=== PATIENT | female | born 1955 | race Caucasian/White ===

== ENCOUNTER 2020-07-20 10:06 | Emergency (ER) | payer MEDICARE, SELFPAY ==
[2020-07-20 10:17] VITALS: BP 121/79; BP 132/80; PULSE 62; PULSE 65; RESP 11; TEMP 37.2; O2SAT 100; BMI 20.8
--- NOTE | 2020-07-20 10:31 | XR_ITS ---
EXAMINATION: XR CHEST CLINICAL INFORMATION: Chest pain. Shortness of breath. Wheezing. COMPARISON: 11/13/2017 TECHNIQUE: Frontal view of the chest was obtained. FINDINGS: EKG leads overlie the chest. Lungs are hyperexpanded. No consolidation, pneumothorax, or pleural effusion. Cardiac and mediastinal contours are normal. Osseous structures are unremarkable. XR/XR chest 1V IMPRESSION: Mild pulmonary hyperexpansion. Otherwise, no acute cardiopulmonary findings.
--- NOTE | 2020-07-20 10:31 | ECG_ITS ---
Test Reason : CHEST PAIN Blood Pressure : / mmHG Vent. Rate : 061 BPM Atrial Rate : 061 BPM P-R Int : 140 ms QRS Dur : 072 ms QT Int : 412 ms P-R-T Axes : 034 027 056 degrees QTc Int : 414 ms Normal sinus rhythm RSR' or QR pattern in V1 suggests right ventricular conduction delay Low voltage QRS Otherwise normal ECG When compared with ECG of 07-JAN-2019 15:14, No significant change was found Referred By: Seble Rosado Electronically Signed By:MARU CARABALLO MD
--- NOTE | 2020-07-20 10:41 | ED_ITS ---
HPI - Chest Pain General Chief Complaint: Chest Pain Stated Complaint: cp Time Seen by Provider: 07/20/20 10:31 Source: patient and EMS Mode of arrival: EMS Limitations: no limitations History of Present Illness HPI narrative: 64 y/o female with history of depression, HLD, cervical radiculopathy, hx suicide attempt in the past presenting with 4 days of central chest pain. She reports she called her doctor yesterday and was encouraged to come to the ER. She states for the last 4 days she has also had increased co ngestion, cough productive of small amounts of green phlegm, wheezing and chills. She states the chest pain worsened this morning, prompting her to call 911. She describes the pain as crushing and it is non-radiating. Worse with deep breaths. No diaphoresis, nausea, jaw pain, neck pain. No personal cardiac history. Grandmother with [place] in her 70's and blood clots, mother with blood clots. MD complaint: chest pain Onset (ago): day(s) (4) Timing of current episode: constant Prior episodes: No Onset: during rest Pain location: substernal Pain radiation: none Severity: moderate Quality: heaviness and crushing Relieving factors: nothing Exacerbating factors: inspiration Context: recent illness Associated symptoms: dyspnea and cough Treatment prior to arrival: aspirin Risk Factors Coronary artery disease risk factors: smoking history and hyperlipidemia Thoracic aortic dissection risk factors: none Related Data On Oral Contraceptives: No Home Medications Medication Instructions Recorded Confirmed Seroquel 07/20/20 Suboxone 07/20/20 07/20/20 Zetia 07/20/20 atorvastatin 07/20/20 sertraline 07/20/20 Previous Rx's Medication Instructions Recorded albuterol sulfate 1 inh INHALATION QID PRN #8.5 g NS 07/20/20 azithromycin [Zithromax Z-Shashank] See Rx Instructions .ROUTE 07/20/20 .COMPLEX #6 tab prednisone 20 mg PO DAILY #10 tab 07/20/20 Allergies Allergy/AdvReac Type Severity Reaction Status Date / Time codeine [Codeine] Allergy Unknown RASH/ITCHY Unverified 05/13/20 14:36 morphine [MORPHINE] Allergy Unknown RASH Unverified 05/13/20 14:36 procaine [From Novocain] AdvReac Mild HEART Unverified 05/13/20 14:36 RACING Review of Systems Review of Systems: Constitutional: No Fever, + Chills ENT/Mouth: No sore throat, + Rhinorrhea, No Swallowing Difficulty Eyes: No Eye Pain, No Swelling, No Redness Cardiovascular: + Chest Pain, + SOB, No Orthopnea, No Edema Respiratory: + Cough, + Sputum, + Wheezing, + dyspnea Gastrointestinal: No Nausea, No Vomiting, No Diarrhea, No abdominal Pain Genitourinary: No Dysuria, No Urinary Frequency, No Hematuria Musculoskeletal: No joint pain, No Myalgias Skin: No Skin Lesions, No rash Neuro: No Weakness, No Numbness, No Dizziness, No Headache Psych: + Anxiety/Panic, + Depression Heme/Lymph: No Bruising, No Lymphadenopathy Endocrine: No Polyuria, No Polydipsia PMFSH Past Medical History Attestation statement: The following information was validated with the patient. Medical History Anxiety COPD (chronic obstructive pulmonary disease) Depression Hypercholesteremia Surgical History (Updated 07/20/20 @ 10:24 by William Hernandez) History of hysterectomy Social History Social History Alcohol intake: never Smoking Status: Former smoker Smoked in Last 30 Days: Yes Use of substances other than those prescribed or required for medical reasons: No Advance Directives: No Advance Directives Information Provided: Yes Physical Exam Vital Signs: Vital Signs: Last Vital Signs Temp 98.1 F 07/20/20 12:00 Pulse 73 07/20/20 12:00 Resp 16 07/20/20 12:00 BP 138/45 L 07/20/20 12:00 Pulse Ox 97 07/20/20 12:00 Body Mass Index 20.8 Appearance: Alert. Oriented X3. No acute distress. Eyes: Pupils equal, round and reactive to light. ENT: Pharynx normal. Neck: Normal inspection. Neck supple. CVS: Normal heart rate and rhythm. Pulses normal. Respiratory: No respiratory distress. Inspiratory and expiratory wheezes throughout. No rhonchi or rales. Abdomen: Soft and nontender. +BS x4 Skin: Skin warm and dry. Normal skin color. Normal skin turgor. No rashes. Extremities: No lower extremity edema. Negative Becky's sign Neuro: Oriented X 3. No motor deficit. No sensory deficit. Course Course Course Narrative: 64 y/o female presenting with 4 days of worsening chest pain along with productive cough, chills, wheezing. Need to r/o PE and ACS. EKG did not show any STEMI. Exam concerning for COPD exacerbation - IV steroids, neb and magnesium ordered. Reevaluation(s) Reevaluation #1: Patient feels and sounds better after neb and steroids. Troponin negative x1 and DDIMER normal. Repeat troponin pending. Reevaluation #2: Repeat troponin negative. She feels much improved. She is st able for discharge with treatment for acute bronchitis. MDM - Chest Pain Medical Records Data Attestation: I reviewed the patient's medical records. Lab Data Attestation: I reviewed the patient's lab results. Result diagrams: 07/20/20 10:53 07/20/20 10:54 Labs: Lab Results 07/20/20 07/20/20 07/20/20 Range/Units 10:53 10:53 10:54 WBC 5.1 (4.8-10.8) X10*3/uL RBC 4.05 L (4.20-5.50) X10*6/uL Hgb 12.4 (12.0-16.0) g/dl Hct 39.2 (37-47) % MCV 96.8 (80-98) fL MCH 30.6 (27.0-33.0) pg MCHC 31.6 (31.0-35.0) g/dl RDW 12.4 (11.0-16.0) % Plt Count 263 (160-400) X10*3/uL MPV 9.8 (9.4-12.3) fL Immature Gran % (Auto) 0.0 (0.0-0.4) % Neut % (Auto) 58.9 (45-73) % Lymph % (Auto) 28.6 (20-40) % [place] % (Auto) 7.2 (2-11) % Eos % (Auto) 4.3 H (0-4) % Baso % (Auto) 1.0 (0-2) % Lymph # (Auto) 1.5 (1.2-4.9) X10*3/uL [place] # (Auto) 0.4 (0.1-1.2) X10*3/uL Eos # (Auto) 0.2 (0.0-0.4) X10*3/uL Baso # (Auto) 0.1 (0.0-0.2) X10*3/uL Abs Immat Gran (auto) 0.00 (0.00-0.03) X10*3/uL Absolute Neuts (auto) 3.0 (2.0-8.3) X10*3/uL Absolute Nucleated RBC 0.000 (0.0-0.012) X10*3/uL Nucleated RBC % (auto) 0.0 (0.0-0.2) /100WBC D-Dimer NG/ML Hold Blue Top SEE NOTE Sodium (135-145) mmol/L Potassium (3.3-5.1) mmol/l Chloride (96-108) mmol/L Carbon Dioxide (22-29) mmol/L Anion Gap (12-20) BUN (9-16) mg/dL Creatinine (0.5-1.4) mg/dL Estim Creat Clear Calc Estimated GFR Random Glucose (60-115) mg/dL Calcium (8.4-10.2) mg/dL Troponin I High Sens (<3.5-17.0) ng/L B-Natriuretic Peptide (<100) pg/mL Coronavirus (PCR) NEGATIVE (Negative) Influenza Type A (PCR) NEGATIVE (Negative) Influenza Type B (PCR) NEGATIVE (Negative) RSV RNA Qual (PCR) NEGATIVE (Negative) 07/20/20 07/20/20 07/20/20 Range/Units 10:54 10:54 10:54 WBC (4.8-10.8) X10*3/uL RBC (4.20-5.50) X10*6/uL Hgb (12.0-16.0) g/dl Hct (37-47) % MCV (80-98) fL MCH (27.0-33.0) pg MCHC (31.0-35.0) g/dl RDW (11.0-16.0) % Plt Count (160-400) X10*3/uL MPV (9.4-12.3) fL Immature Gran % (Auto) (0.0-0.4) % Neut % (Auto) (45-73) % Lymph % (Auto) (20-40) % [place] % (Auto) (2-11) % Eos % (Auto) (0-4) % Baso % (Auto) (0-2) % Lymph # (Auto) (1.2-4.9) X10*3/uL [place] # (Auto) (0.1-1.2) X10*3/uL Eos # (Auto) (0.0-0.4) X10*3/uL Baso # (Auto) (0.0-0.2) X10*3/uL Abs Immat Gran (auto) (0.00-0.03) X10*3/uL Absolute Neuts (auto) (2.0-8.3) X10*3/uL Absolute Nucleated RBC (0.0-0.012) X10*3/uL Nucleated RBC % (auto) (0.0-0.2) /100WBC D-Dimer < 200 NG/ML Hold Blue Top Sodium 140 (135-145) mmol/L Potassium 5.3 H (3.3-5.1) mmol/l Chloride 104 (96-108) mmol/L Carbon Dioxide 30 H (22-29) mmol/L Anion Gap 11 L (12-20) BUN 17 H (9-16) mg/dL Creatinine 0.85 (0.5-1.4) mg/dL Estim Creat Clear Calc 53.8 Estimated GFR > 60 Random Glucose 101 (60-115) mg/dL Calcium 9.8 (8.4-10.2) mg/dL Troponin I High Sens < 3.5 (<3.5-17.0) ng/L B-Natriuretic Peptide (<100) pg/mL Coronavirus (PCR) (Negative) Influenza Type A (PCR) (Negative) Influenza Type B (PCR) (Negative) RSV RNA Qual (PCR) (Negative) 07/20/20 07/20/20 Range/Units 10:54 13:47 WBC (4.8-10.8) X10*3/uL RBC (4.20-5.50) X10*6/uL Hgb (12.0-16.0) g/dl Hct (37-47) % MCV (80-98) fL MCH (27.0-33.0) pg MCHC (31.0-35.0) g/dl RDW (11.0-16.0) % Plt Count (160-400) X10*3/uL MPV (9.4-12.3) fL Immature Gran % (Auto) (0.0-0.4) % Neut % (Auto) (45-73) % Lymph % (Auto) (20-40) % [place] % (Auto) (2-11) % Eos % (Auto) (0-4) % Baso % (Auto) (0-2) % Lymph # (Auto) (1.2-4.9) X10*3/uL [place] # (Auto) (0.1-1.2) X10*3/uL Eos # (Auto) (0.0-0.4) X10*3/uL Baso # (Auto) (0.0-0.2) X10*3/uL Abs Immat Gran (auto) (0.00-0.03) X10*3/uL Absolute Neuts (auto) (2.0-8.3) X10*3/uL Absolute Nucleated RBC (0.0-0.012) X10*3/uL Nucleated RBC % (auto) (0.0-0.2) /100WBC D-Dimer NG/ML Hold Blue Top Sodium (135-145) mmol/L Potassium (3.3-5.1) mmol/l Chloride (96-108) mmol/L Carbon Dioxide (22-29) mmol/L Anion Gap (12-20) BUN (9-16) mg/dL Creatinine (0.5-1.4) mg/dL Estim Creat Clear Calc Estimated GFR Random Glucose (60-115) mg/dL Calcium (8.4-10.2) mg/dL Troponin I High Sens < 3.5 (<3.5-17.0) ng/L B-Natriuretic Peptide 33 (<100) pg/mL Coronavirus (PCR) (Negative) Influenza Type A (PCR) (Negative) Influenza Type B (PCR) (Negative) RSV RNA Qual (PCR) (Negative) ECG Data ECG #1: Attestation: I personally reviewed and interpreted this ECG as follows: ECG interpretation date: 07/20/20 ECG interpretation time: 11:11 Interpretation: normal sinus rhythm, HR 61 bpm, normal OH interval, normal QTc. Isolated T-wave inversion in lead V1. Scores Heart Score History: -1- moderately suspicious ECG: -0- normal Age: -2- > or = 65 Risk factory: -0- no risk factors known Troponin: -0- < or = normal limit Score: 3 Risk: 1.7% Discharge Plan Discharge Clinical Impression: Acute bronchitis Qualifiers: Bronchitis organism: unspecified organism Qualified Code(s): J20.9 - Acute bronchitis, unspecified Patient Disposition: Home, Self-Care Instructions: Acute Bronchitis (ED) Additional Instructions: Your lab workup today was reassuring AGAINST cardiac causes of your chest discomfort. Given your other symptoms and physical exam findings, it is likely you have acute bronchitis. We will treat you with steroids, inhalers and antibiotics. Follow up with your doctor later this week. If your symptoms persist or worsen call 911 or come back to the ER for further evaluation. Prescriptions: New prednisone 20 mg tablet 20 mg PO DAILY Qty: 10 RF: 0 albuterol sulfate 90 mcg/actuation HFA aerosol inhaler 1 inh inhalation QID PRN (Reason: shortness of breath or wheezing) Qty: 8.5 RF: 0 azithromycin [Zithromax Z-Shashank] 250 mg tablet See Rx Instructions .ROUTE .COMPLEX Qty: 6 RF: 0 Continued Seroquel RF: 0 Suboxone RF: 0 Zetia RF: 0 atorvastatin RF: 0 sertraline RF: 0
[2020-07-20 11:01] LABS: MANUAL DIFF FLAG NO
[2020-07-20 11:02] LABS: Basophils Absolute Auto 0.1 X10*3/uL (0.0-0.2); Eosinophils Absolute Auto 0.2 X10*3/uL (0.0-0.4); Eosinophils Percent Auto 4.3 % (0-4); Hematocrit 39.2 % (37-47); Hemoglobin 12.4 g/dl (12.0-16.0); Lymphocytes Absolute Auto 1.5 X10*3/uL (1.2-4.9); Lymphocytes Percent Auto 28.6 % (20-40); Mean Corpuscular HGB Conc 31.6 g/dl (31.0-35.0); Mean Corpuscular Hemoglobin 30.6 pg (27.0-33.0); Mean Corpuscular Volume 96.8 fL (80-98); Mean Platelet Volume 9.8 fL (9.4-12.3); Monocytes Absolute Auto 0.4 X10*3/uL (0.1-1.2); Monocytes Percent Auto 7.2 % (2-11); Neutrophils Percent Auto 58.9 % (45-73); Platelet Count 263 X10*3/uL (160-400); Red Blood Count 4.05 X10*6/uL (4.20-5.50); Red Cell Distribution Width 12.4 % (11.0-16.0); White Blood Count 5.1 X10*3/uL (4.8-10.8)
[2020-07-20] MEDS: Magnesium Sulfate/D5W 1 GM/100 ML PIGGYBACK IV (11:06)
[2020-07-20] MEDS: methylPREDNISolone Sod Succ/PF 125 MG/2 ML VIAL 80 MG IVPUSH (11:06)
[2020-07-20 11:11] LABS: D Dimer < 200 NG/ML
[2020-07-20 11:23] LABS: Anion Gap 11 (12-20); Blood Urea Nitrogen 17 mg/dL (9-16); Calcium 9.8 mg/dL (8.4-10.2); Carbon Dioxide 30 mmol/L (22-29); Chloride 104 mmol/L (96-108); Creatinine Clr Calc Pharmacy 53.8; Estimated Glomerular Filt Rate > 60; Glucose Random 101 mg/dL (60-115); Potassium 5.3 mmol/l (3.3-5.1); Sodium 140 mmol/L (135-145)
[2020-07-20] MEDS: Albuterol/Iprat 2.5/0.5MG 3 ML AMPUL.NEB INHALE (11:24)
[2020-07-20 11:25] VITALS: PULSE 64; O2SAT 99
[2020-07-20 11:31] LABS: B Type Natriuretic Peptide 33 pg/mL (<100); Troponin-I High Sensitivity < 3.5 ng/L (<3.5-17.0)
[2020-07-20 11:49] LABS: Influenza A PCR NEGATIVE (Negative); Influenza B PCR NEGATIVE (Negative); Resp Syncy Virus RNA Qual PCR NEGATIVE (Negative); SARS COV2 PCR INHOUSE NEGATIVE (Negative)
[2020-07-20 12:00] VITALS: BP 138/45; PULSE 73; RESP 16; TEMP 36.7; O2SAT 97
[2020-07-20 12:04] VITALS: PULSE 69
[2020-07-20] MEDS: 0.9 % Sodium Chloride 1,000 ML 999 ML IVCONT (12:04)
[2020-07-20 14:00] VITALS: BP 141/71; PULSE 75; RESP 18; TEMP 36.6; O2SAT 96
[2020-07-20] MEDS: Ketorolac Tromethamine 30 MG/ML VIAL IVPUSH (14:32)
[2020-07-20] MEDS: ondansetron HCL 4 MG/2 ML VIAL IVPUSH (14:32)
[2020-07-20 14:34] LABS: Troponin-I High Sensitivity < 3.5 ng/L (<3.5-17.0)
[2020-07-20 16:00] VITALS: BP 131/75; PULSE 81; RESP 16; TEMP 36.9; O2SAT 97
== END 2020-07-20 16:23 | disposition home or self-care (01) ==
PROVIDERS: Physician Assistant; Emergency Provider Emergency Medicine Emergency Medical Services; PCP Nurse Practitioner Family
DX: J20.9 Acute bronchitis, unspecified (principal); R07.9 Chest pain, unspecified; R05 Cough; Z79.899 Other long term (current) drug therapy; Z87.891 Personal history of nicotine dependence; Z20.828 Contact with and (suspected) exposure to other viral communicable diseases
CPT/HCPCS: 0241U; 36415; 71045; 80048; 83880; 84484; 85025; 85379; 93005; 94640; 96365; 96375; 99284; 99285; J1885; J2405; J2930; J3475

== ENCOUNTER 2021-04-21 12:01 | Emergency (ER) | payer MEDICARE, SELFPAY ==
--- NOTE | ~2021-04-21 | XR_ITS ---
EXAMINATION: XR CHEST CLINICAL INFORMATION: Chest pain COMPARISON: July 20, 2020 TECHNIQUE: AP portable view of the chest was obtained. FINDINGS: No significant abnormality is noted involving the heart, lungs, mediastinum, bony thorax or soft tissues. XR/XR chest 1V IMPRESSION: No acute parenchymal disease.
--- NOTE | 2021-04-21 12:12 | ECG_ITS ---
Test Reason : CP Blood Pressure : / mmHG Vent. Rate : 056 BPM Atrial Rate : 056 BPM P-R Int : 148 ms QRS Dur : 076 ms QT Int : 440 ms P-R-T Axes : 015 020 037 degrees QTc Int : 424 ms Sinus bradycardia Otherwise normal ECG When compared with ECG of 20-JUL-2020 10:18, No significant change was found Referred By: Generic ED Physician Electronically Signed By:SUNIL STOKES
[2021-04-21 12:13] VITALS: BP 117/62; PULSE 56; PULSE 74; RESP 18; TEMP 37; O2SAT 97; O2SAT 99; BMI 21.2
[2021-04-21 12:18] VITALS: BP 125/80
[2021-04-21 12:34] LABS: MANUAL DIFF FLAG NO
[2021-04-21 12:36] LABS: Basophils Percent Auto 0.5 % (0-2); Eosinophils Absolute Auto 0.1 X10*3/uL (0.0-0.4); Eosinophils Percent Auto 1.8 % (0-4); Hematocrit 35.9 % (37-47); Hemoglobin 11.7 g/dl (12.0-16.0); Imm Gran Abs Auto 0.01 X10*3/uL (0.00-0.03); Imm Gran Pct Auto 0.2 % (0.0-0.4); Lymphocytes Absolute Auto 1.7 X10*3/uL (1.2-4.9); Lymphocytes Percent Auto 31.5 % (20-40); Mean Corpuscular HGB Conc 32.6 g/dl (31.0-35.0); Mean Corpuscular Hemoglobin 31.5 pg (27.0-33.0); Mean Corpuscular Volume 96.8 fL (80-98); Mean Platelet Volume 9.2 fL (9.4-12.3); Monocytes Absolute Auto 0.4 X10*3/uL (0.1-1.2); Monocytes Percent Auto 6.3 % (2-11); Neutrophils Absolute Auto 3.3 X10*3/uL (2.0-8.3); Neutrophils Percent Auto 59.7 % (45-73); Platelet Count 254 X10*3/uL (160-400); Red Blood Count 3.71 X10*6/uL (4.20-5.50); Red Cell Distribution Width 12.3 % (11.0-16.0); White Blood Count 5.5 X10*3/uL (4.8-10.8)
--- NOTE | 2021-04-21 12:44 | ED_ITS ---
HPI - Chest Pain General Chief Complaint: Chest Pain Stated Complaint: chest pain Time Seen by Provider: 04/21/21 12:21 Source: patient Mode of arrival: EMS History of Present Illness HPI narrative: 65-year-old Female with a past medical history anxiety, COPD, depression, hyperlipidemia, presenting to the ED complaining of sudden onset sub sternal sharp chest pain all in therapy session [facility] [employer]. Reports associated SOB and nausea during incident. Reports symptomatic improvement at present just with residual nausea however nausea has been present x months. Denies fever, chills, cough, LE edema, numbness, tingling, weakness, vomiting MD complaint: chest pain Related Data Home Medications Medication Instructions Recorded Confirmed Seroquel 07/20/20 Suboxone 07/20/20 07/20/20 Zetia 07/20/20 atorvastatin 07/20/20 sertraline 07/20/20 Previous Rx's Medication Instructions Recorded albuterol sulfate 90 mcg/actuation 1 inh INHALATION QID PRN #8.5 g NS 07/20/20 aerosol inhaler azithromycin 250 mg tablet See Rx Instructions .ROUTE 07/20/20 (Zithromax Z-Shashank) .COMPLEX #6 tab prednisone 20 mg tablet 20 mg PO DAILY #10 tab 07/20/20 Allergies Allergy/AdvReac Type Severity Reaction Status Date / Time codeine [Codeine] Allergy Unknown RASH/ITCHY Unverified 05/13/20 14:36 morphine [MORPHINE] Allergy Unknown RASH Unverified 05/13/20 14:36 diphenhydramine Allergy Involuntary Verified 04/21/21 12:12 [From Benadryl] Spasms procaine [From Novocain] AdvReac Mild HEART Unverified 05/13/20 14:36 RACING Review of Systems Review of Systems: Constitutional: No Fever, No Chills, No Fatigue, No Malaise ENT/Mouth: No Hearing loss, No Ear Pain, No Nasal Congestion, No sore throat, No Rhinorrhea Eyes: No Eye Pain, No Vision Changes Cardiovascular: + Chest Pain (resolved), + SOB(resolved), No Dyspnea on Exertion, No Orthopnea, No Edema, No Palpitations Respiratory: No Cough, No Dyspnea Gastrointestinal: + Nausea, No Vomiting, No Diarrhea, No Abdominal pain Genitourinary: No Dysuria, No Urinary Frequency, No Hematuria, No Flank Pain Musculoskeletal: No joint pain, No Myalgias Skin: No Skin Lesions, No rash Neuro: No Weakness, No Numbness, No Paresthesias, No Headache Yes all other systems are reviewed and are negative [facility] Past Medical History Attestation statement: The following information was validated with the patient. Medical History Anxiety COPD (chronic obstructive pulmonary disease) Depression Hypercholesteremia Surgical History History of hysterectomy Social History Social History Alcohol intake: never Advance Directives: Yes Advance Directives on File: Yes Advance Directives Date on File: 07/20/20 Physical Exam Vital Signs: Vital Signs: Last Vital Signs Temp 98.1 F 04/21/21 14:09 Pulse 59 04/21/21 14:09 Resp 12 04/21/21 14:09 BP 96/62 04/21/21 14:09 Pulse Ox 98 04/21/21 14:09 Body Mass Index 21.2 Const: General: cooperative, healthy appearing and no acute distress Orientation/consciousness: patient oriented x3 Limitations: no limitations HENMT: Head: Yes normal to inspection Ears: hearing grossly normal bilater ally General nose exam: Normal external nose present Face and sinus: Yes normal facial exam Eyes: General: appearance normal, both eyes and all related structures EOM: EOMs intact bilaterally Neck: Neck: Yes normal visual inspection Resp: Effort & Inspection: normal respiratory effort Auscultation: clear to auscultation bilaterally, no rales, no rhonchi and no wheezes Cardio: Rate: regular rate Heart sounds: S1 normal heart sound present and S2 normal heart sound present GI: Inspection: Yes normal to inspection Palpation (GI): Soft to palpation, nontender, no guarding and not rigid Skin: Rashes: no rashes Wounds: no wounds Neuro: General: patient oriented x3 Gait exam (Neuro): Normal gait present Extrem: General: Yes normal to inspection and Yes no pedal edema Course Course Course Narrative: -labs unremarkable XR chest 1V IMPRESSION: No acute parenchymal disease. -161--troponin x2 negative > results discussed with patient including worrisome signs and symptoms and strict return precautions and needed follow-up with her PCP, patient verbalized understanding feel safe for discharge home MDM - Chest Pain MDM Narrative Medical decision making narrative: 65-year-old Female with a past medical history anxiety, COPD, depression, hyperlipidemia, presenting to the ED complaining of sudden onset substernal sharp chest pain all in therapy session [employer]. Reports associated SOB and nausea during incident. Reports symptomatic i mprovement at present. On exam VSS, NAD/well-appearing, no pedal edema, lungs CTA. Concern for ACS or ?Anxiety. Low concern for PE/CHF/COPD Plan: EKG, labs including troponin x2 CXR, reassess Medical Records Data Attestation: I reviewed the patient's medical records. Lab Data Attestation: I reviewed the patient's lab results. Result diagrams: 04/21/21 12:29 04/21/21 12: Labs: Lab Results 04/21/21 04/21/21 04/21/21 Range/Units 12:29 12:29 12:29 WBC 5.5 (4.8-10.8) X10*3/uL RBC 3.71 L (4.20-5.50) X10*6/uL Hgb 11.7 L (12.0-16.0) g/dl Hct 35.9 L (37-47) % MCV 96.8 (80-98) fL MCH 31.5 (27.0-33.0) pg MCHC 32.6 (31.0-35.0) g/dl RDW 12.3 (11.0-16.0) % Plt Count 254 (160-400) X10*3/uL MPV 9.2 L (9.4-12.3) fL Immature Gran % (Auto) 0.2 (0.0-0.4) % Neut % (Auto) 59.7 (45-73) % Lymph % (Auto) 31.5 (20-40) % [place] % (Auto) 6.3 (2-11) % Eos % (Auto) 1.8 (0-4) % Baso % (Auto) 0.5 (0-2) % Lymph # (Auto) 1.7 (1.2-4.9) X10*3/uL [place] # (Auto) 0.4 (0.1-1.2) X10*3/uL Eos # (Auto) 0.1 (0.0-0.4) X10*3/uL Baso # (Auto) 0.0 (0.0-0.2) X10*3/uL Abs Immat Gran (auto) 0.01 (0.00-0.03) X10*3/uL Absolute Neuts (auto) 3.3 (2.0-8.3) X10*3/uL Absolute Nucleated RBC 0.000 (0.0-0.012) X10*3/uL Nucleated RBC % (auto) 0.0 (0.0-0.2) /100WBC Sodium 138 (135-145) mmol/L Potassium 4.0 (3.3-5.1) mmol/L Chloride 101 (96-108) mmol/L Carbon Dioxide 31 H (22-29) mmol/L Anion Gap 10 L (12-20) BUN 13 (9-16) mg/dL Creatinine 0.85 (0.5-1.4) mg/dL Estim Creat Clear Calc 53.1 Estimated GFR > 60 Random Glucose 94 (60-115) mg/dL Calcium 9.5 (8.4-10.2) mg/dL Magnesium 2.1 (1.6-2.6) mg/dL Total Bilirubin 0.8 (0.0-1.0) mg/dL Direct Bilirubin 0.3 (0.0-0.5) mg/dL AST 20 (5-31) U/L ALT 16 (0-31) U/L Alkaline Phosphatase 65 (39-117) U/L Troponin I High Sens < 3.5 (<3.5-17.0) ng/L B-Natriuretic Peptide 23 (<100) pg/mL Total Protein 6.7 (6.5-8.0) g/dL Albumin 4.4 (3.5-5.0) g/dL 04/21/21 Range/Units 15:29 WBC (4.8-10.8) X10*3/uL RBC (4.20-5.50) X10*6/uL Hgb (12.0-16.0) g/dl Hct (37-47) % MCV (80-98) fL MCH (27.0-33.0) pg MCHC (31.0-35.0) g/dl RDW (11.0-16.0) % Plt Count (160-400) X10*3/uL MPV (9.4-12.3) fL Immature Gran % (Auto) (0.0-0.4) % Neut % (Auto) (45-73) % Lymph % (Auto) (20-40) % [place] % (Auto) (2-11) % Eos % (Auto) (0-4) % Baso % (Auto) (0-2) % Lymph # (Auto) (1.2-4.9) X10*3/uL [place] # (Auto) (0.1-1.2) X10*3/uL Eos # (Auto) (0.0-0.4) X10*3/uL Baso # (Auto) (0.0-0.2) X10*3/uL Abs Immat Gran (auto) (0.00-0.03) X10*3/uL Absolute Neuts (auto) (2.0-8.3) X10*3/uL Absolute Nucleated RBC (0.0-0.012) X10*3/uL Nucleated RBC % (auto) (0.0-0.2) /100WBC Sodium (135-145) mmol/L Potassium (3.3-5.1) mmol/L Chloride (96-108) mmol/L Carbon Dioxide (22-29) mmol/L Anion Gap (12-20) BUN (9-16) mg/dL Creatinine (0.5-1.4) mg/dL Estim Creat Clear Calc Estimated GFR Random Glucose (60-115) mg/dL Calcium (8.4-10.2) mg/dL Magnesium (1.6-2.6) mg/dL Total Bilirubin (0.0-1.0) mg/dL Direct Bilirubin (0.0-0.5) mg/dL AST (5-31) U/L ALT (0-31) U/L Alkaline Phosphatase (39-117) U/L Troponin I High Sens < 3.5 (<3.5-17.0) ng/L B-Natriuretic Peptide (<100) pg/mL Total Protein (6.5-8.0) g/dL Albumin (3.5-5.0) g/dL ECG Data ECG #1: Attestation: I personally reviewed and interpreted this ECG as follows: ECG interpretation date: 04/21/21 ECG interpretation time: 12:18 Interpretation: EKG sinus bradycardia with rate of 56. Nonischemic/no STEMI. Artifact present Discharge Plan Discharge Clinical Impression: Chest pain Qualifiers: Chest pain type: unspecified Qualified Code(s): R07.9 - Chest pain, unspecified Patient Disposition: Home, Self-Care Instructions: Chest Pain (ED) Additional Instructions: Your blood work was reassuring Your chest x-ray was unremarkable It is very important for you to follow-up with her primary care doctor, and Cardiology as needed If her symptoms persist or worsen, become a unbearable or persistent please return to the ED Prescriptions: No Action Seroquel RF: 0 Suboxone RF: 0 Zetia RF: 0 atorvastatin RF: 0 sertraline RF: 0 prednisone 20 mg tablet 20 mg PO DAILY Qty: 10 RF: 0 albuterol sulfate 90 mcg/actuation HFA aerosol inhaler 1 inh inhalation QID PRN (Reason: shortness of breath or wheezing) Qty: 8.5 RF: 0 azithromycin [Zithromax Z-Shashank] 250 mg tablet See Rx Instructions .ROUTE .COMPLEX Qty: 6 RF: 0 Referrals: Zulma Raymundo NP [Primary Care Provider] - 2 days Fernando Hernandez MD [Physician] - 1 week
[2021-04-21] MEDS: ondansetron HCL 4 MG/2 ML VIAL IVPUSH (12:57)
[2021-04-21 13:03] LABS: Anion Gap 10 (12-20); Blood Urea Nitrogen 13 mg/dL (9-16); Calcium 9.5 mg/dL (8.4-10.2); Carbon Dioxide 31 mmol/L (22-29); Chloride 101 mmol/L (96-108); Creatinine Clr Calc Pharmacy 53.1; Estimated Glomerular Filt Rate > 60; Glucose Random 94 mg/dL (60-115); Sodium 138 mmol/L (135-145)
[2021-04-21 13:09] LABS: Troponin-I High Sensitivity < 3.5 ng/L (<3.5-17.0)
[2021-04-21 13:15] LABS: Alanine Aminotransferase 16 U/L (0-31); Albumin Level 4.4 g/dL (3.5-5.0); Alkaline Phosphatase 65 U/L (39-117); Aspartate Amino Transferase 20 U/L (5-31); Bilirubin Direct 0.3 mg/dL (0.0-0.5); Bilirubin Total 0.8 mg/dL (0.0-1.0); Magnesium 2.1 mg/dL (1.6-2.6); Total Protein 6.7 g/dL (6.5-8.0)
[2021-04-21 13:21] LABS: B Type Natriuretic Peptide 23 pg/mL (<100)
[2021-04-21 14:09] VITALS: BP 96/62; PULSE 59; RESP 12; TEMP 36.7; O2SAT 98
[2021-04-21 16:02] LABS: Troponin-I High Sensitivity < 3.5 ng/L (<3.5-17.0)
== END 2021-04-21 16:43 | disposition home or self-care (01) ==
PROVIDERS: Physician Assistant; Emergency Provider Emergency Medicine; PCP Nurse Practitioner Family
DX: R07.9 Chest pain, unspecified (principal); R00.1 Bradycardia, unspecified; F41.9 Anxiety disorder, unspecified; Z79.899 Other long term (current) drug therapy
CPT/HCPCS: 36415; 71045; 80048; 80076; 83735; 83880; 84484; 85025; 93005; 96374; 99284; 99285; J2405

== ENCOUNTER 2022-03-01 12:51 | Emergency (ER) | payer OTHER, SELFPAY ==
--- NOTE | ~2022-03-01 | XR_ITS ---
EXAMINATION: XR CHEST CLINICAL INFORMATION: Chest pain. COMPARISON: 04/21/2021 chest radiograph. TECHNIQUE: Frontal view of the chest was obtained. FINDINGS: No significant abnormality is noted involving the heart, lungs, mediastinum, bony thorax or soft tissues. XR/XR chest 1V IMPRESSION: No acute cardiopulmonary process.
--- NOTE | ~2022-03-01 | CT_ITS ---
EXAMINATION: CT ABDOMEN AND PELVIS WITHOUT CONTRAST CLINICAL INFORMATION: 66-year-old female with epigastric pain and 20 pound weight loss. COMPARISON: Abdominal ultrasound 08/14/2012 TECHNIQUE: Multidetector volumetric imaging was performed from the superior aspect of the liver through the pubic symphysis. Sagittal and coronal reformatted images were obtained on the technologist's workstation. This CT examination was performed using dose optimization techniques as appropriate, variously including the following: *Automated exposure control *Adjustment of mA and/or kV according to patient size (this includes techniques or standardized protocols for targeted exams where dose is matched to indication/reason for exam; i.e. extremities or head) *Use of iterative reconstruction technique DLP: 308 mGy-cm FINDINGS: Visualized lung bases are well aerated. The liver is mildly enlarged. The gallbladder is normal in appearance. The pancreas, spleen and adrenal glands are unremarkable. Symmetrically sized kidneys. No renal calculi or hydronephrosis of either kidney. The stomach is decompressed. Normal caliber loops of small and large bowel. Mild colonic stool burden. Mild colonic diverticulosis without CT evidence to suggest active diverticulitis. Normal caliber abdominal aorta. Several vascular structures within the left hemiabdomen are nonspecific and difficult to evaluate given lack of IV contrast, however, these may represent a splenorenal shunt. The bladder is decompressed and therefore not accurately evaluated. Uterus is either atrophic or surgically absent. Suspected 2 cm right adnexal cyst. No gross free pelvic fluid. No inguinal lymphadenopathy. Mild to moderate degenerative changes of the spine. CT/CT abdomen pelvis wo con IMPRESSION: -No CT evidence for acute abnormality within the abdomen or pelvis. -Mild hepatomegaly. -Mild colonic diverticulosis. -Several vascular structures within the left hemiabdomen are nonspecific and difficult to evaluate given lack of IV contrast, however, these may represent a splenorenal shunt. Fleischner guidelines were followed.
[2022-03-01 13:22] VITALS: BP 119/82; PULSE 72; RESP 18; TEMP 36.8; O2SAT 97
--- NOTE | 2022-03-01 13:26 | ECG_ITS ---
Test Reason : Chest Pain Blood Pressure : / mmHG Vent. Rate : 066 BPM Atrial Rate : 066 BPM P-R Int : 146 ms QRS Dur : 064 ms QT Int : 400 ms P-R-T Axes : 042 033 055 degrees QTc Int : 419 ms Normal sinus rhythm Normal ECG When compared with ECG of 21-APR-2021 12:18, No significant change was found Referred By: Generic ED Physician Electronically Signed By:Fernando Hernandez
[2022-03-01 13:44] LABS: MANUAL DIFF FLAG NO
[2022-03-01 13:46] LABS: Basophils Percent Auto 0.5 % (0-2); Eosinophils Absolute Auto 0.1 X10*3/uL (0.0-0.4); Eosinophils Percent Auto 1.1 % (0-4); Hematocrit 36.5 % (37.0-47.0); Hemoglobin 11.8 g/dl (12.0-16.0); Imm Gran Abs Auto 0.02 X10*3/uL (0.00-0.03); Imm Gran Pct Auto 0.3 % (0.0-0.4); Lymphocytes Absolute Auto 2.3 X10*3/uL (1.2-4.9); Lymphocytes Percent Auto 36.5 % (20-40); Mean Corpuscular HGB Conc 32.3 g/dl (31.0-35.0); Mean Corpuscular Hemoglobin 30.3 pg (27.0-33.0); Mean Corpuscular Volume 93.8 fL (80.0-98.0); Monocytes Absolute Auto 0.4 X10*3/uL (0.1-1.2); Monocytes Percent Auto 6.6 % (2-11); Neutrophils Absolute Auto 3.4 x10*3/uL (2.0-8.3); Platelet Count 287 X10*3/uL (160-400); Red Blood Count 3.89 X10*6/uL (4.20-5.50); Red Cell Distribution Width 12.3 % (11.0-16.0); White Blood Count 6.3 X10*3/uL (4.8-10.8)
[2022-03-01 14:10] LABS: Anion Gap 10 (12-20); Blood Urea Nitrogen 18 mg/dL (9-16); Calcium 9.2 mg/dL (8.4-10.2); Chloride 103 mmol/L (96-108); Creatinine Clr Calc Pharmacy 42.2; Estimated Glomerular Filt Rate 53; Glucose Random 90 mg/dL (60-115); Potassium 4.3 mmol/L (3.3-5.1); Sodium 138 mmol/L (135-145)
[2022-03-01 14:19] LABS: Troponin-I High Sensitivity < 3.5 ng/L (<3.5-17.0)
[2022-03-01 14:29] LABS: Carbon Dioxide 29 mmol/L (22-29)
--- NOTE | 2022-03-01 18:51 | ED_ITS ---
HPI - Chest Pain General Chief Complaint: Chest Pain Stated Complaint: chest pain, R jaw pain, abd pain Time Seen by Provider: 03/01/22 18:51 Source: patient Mode of arrival: ambulatory Limitations: no limitations History of Present Illness HPI narrative: epigastric pain with burning (fire) and not eating for months. This feels similar to when she had an ulcer. Not sleeping. Not having bloody stools or black stools Onset (ago): month(s) Timing of current episode: constant Prior episodes: Yes Pain location: epigastric Severity: severe Quality: burning Associated symptoms: nausea Related Data Home Medications Medication Instructions Recorded Confirmed Seroquel 07/20/20 Suboxone 07/20/20 07/20/20 Zetia 07/20/20 atorvastatin 07/20/20 sertraline 07/20/20 Previous Rx's Medication Instructions Recorded albuterol sulfate 90 mcg/actuation 1 inh inhalation QID PRN shortness 07/20/20 aerosol inhaler of breath or wheezing #8.5 grams azithromycin 250 mg tablet See Rx Instructions PO .COMPLEX #6 07/20/20 (Zithromax Z-Shashank) tabs prednisone 20 mg tablet 20 mg PO DAILY #10 tabs 07/20/20 pantoprazole 40 mg tablet,delayed 40 mg PO DAILY #20 tabs 03/01/22 release (Protonix) Allergies Allergy/AdvReac Type Severity Reaction Status Date / Time diphenhydramine Allergy Intermediate Involuntary Verified 03/01/22 13:22 [From Benadryl] Spasms codeine [Codeine] AdvReac Intermediate RASH/ITCHY Verified 03/01/22 13:22 morphine [MORPHINE] AdvReac Intermediate RASH Verified 03/01/22 13:22 procaine [From Novocain] AdvReac Mild HEART Verified 03/01/22 13:22 RACING Review of Systems Constitutional: Constitutional: Reports no additional constitutional complaints Eyes: Eyes: Reports no additional eye complaints ENT: Denies dizziness Cardiovascular: Cardiovascular: Reports no additional cardiovascular complaints Respiratory: Respiratory: Reports as per HPI Gastrointestinal: Gastrointestinal: Reports no additional gastrointestinal complaints Genitourinary: Genitourinary: Reports no additional female genitourinary complaints Musculoskeletal: Musculoskeletal: Reports no additional musculoskeletal complaints Integumentary/Breasts: Skin/Breast: Denies rash Neurologic: Reports system reviewed and no additional complaints, except as documented, Denies dizziness and Denies Sensory deficit (Neuro) Psychiatric: Psychiatric: Denies anxiety [facility] Past Medical History Medical History Anxiety COPD (chronic obstructive pulmonary disease) Depression Hypercholesteremia Surgical History History of hysterectomy Social History Social History Alcohol intake: never Advance Directives: Yes Advance Directives on File: Yes Advance Directives Date on File: 07/20/20 Physical Exam Vital Signs: Vital Signs: Last Vital Signs Temp 97.8 F 03/01/22 19:22 Pulse 60 03/01/22 19:22 Resp 15 03/01/22 19:22 BP 133/73 03/01/22 19:22 Pulse Ox 100 03/01/22 19:22 O2 Del Method 03/01/22 19:22 BMI result Body Mass Index 20.0 Const: Other: very thin female Orientation/consciousness: oriented to person and patient oriented x3 Limitations: no limitations HEENT: Head: Yes normal to inspection Ears: external ears normal General nose exam: Normal external nose present Mouth: Normal oral and palatal mucosa present and oropharynx normal Throat: Yes posterior oropharynx normal Eyes: General: appearance normal, both eyes and all related structures Neck: Other: supple Neck: Yes normal visual inspection Chest: Chest palpation & inspection: normal inspection of the chest Resp: Auscultation: clear to auscultation bilaterally Cardio: Jugular venous distension: no JVD Rate: regular rate Rhythm: regular rhythm Heart sounds: S1 normal heart sound present and S2 normal heart sound present GI: Other: epigastric tenderness Palpation (GI): Soft to palpation Auscultation: normal bowel sounds : General: Yes no CVA tenderness Back/Spine/Pelvis: Back: no CVA tenderness Skin: General skin exam: no rashes or lesions noted Neuro: General: oriented to person and patient oriented x3 Cranial nerves: Yes CN's II-XII intact bilaterally Motor exam (neuro): 5/5 motor strength present throughout Sensory Exam: No Sensory deficit (Neuro) Extrem: General: Yes normal to inspection Psych: Appearance: grossly normal Course Reevaluation(s) Reevaluation #1: Normal labs, CT shows no masses will treat for gastritis and or ulcers Time: 20:55 MDM - Chest Pain Lab Data Result diagrams: 03/01/22 13:40 03/01/22 13:40 Labs: Lab Results 03/01/22 03/01/22 03/01/22 Range/Units 13:40 13:40 13:40 WBC 6.3 (4.8-10.8) X10*3/uL RBC 3.89 L (4.20-5.50) X10*6/uL Hgb 11.8 L (12.0-16.0) g/dl Hct 36.5 L (37.0-47.0) % MCV 93.8 (80.0-98.0) fL MCH 30.3 (27.0-33.0) pg MCHC 32.3 (31.0-35.0) g/dl RDW 12.3 (11.0-16.0) % Plt Count 287 (160-400) X10*3/uL MPV 9.0 L (9.4-12.3) fL Immature Gran % (Auto) 0.3 (0.0-0.4) % Neut % (Auto) 55.0 (45-73) % Lymph % (Auto) 36.5 (20-40) % [place] % (Auto) 6.6 (2-11) % Eos % (Auto) 1.1 (0-4) % Baso % (Auto) 0.5 (0-2) % Lymph # (Auto) 2.3 (1.2-4.9) X10*3/uL [place] # (Auto) 0.4 (0.1-1.2) X10*3/uL Eos # (Auto) 0.1 (0.0-0.4) X10*3/uL Baso # (Auto) 0.0 (0.0-0.2) X10*3/uL Abs Immat Gran (auto) 0.02 (0.00-0.03) X10*3/uL Absolute Neuts (auto) 3.4 (2.0-8.3) x10*3/uL Absolute Nucleated RBC 0.000 (0.0-0.012) X10*3/uL Nucleated RBC % (auto) 0.0 (0.0-0.2) /100WBC Sodium 138 (135-145) mmol/L Potassium 4.3 (3.3-5.1) mmol/L Chloride 103 (96-108) mmol/L Carbon Dioxide 29 (22-29) mmol/L Anion Gap 10 L (12-20) BUN 18 H (9-16) mg/dL Creatinine 1.03 (0.5-1.4) mg/dL Estim Creat Clear Calc 42.2 Estimated GFR 53 Random Glucose 90 (60-115) mg/dL Calcium 9.2 (8.4-10.2) mg/dL Total Bilirubin 0.7 (0.0-1.0) mg/dL Direct Bilirubin 0.3 (0.0-0.5) mg/dL AST 27 (5-31) U/L ALT 25 (0-31) U/L Alkaline Phosphatase 89 D (39-117) U/L Troponin I High Sens < 3.5 (<3.5-17.0) ng/L Total Protein 6.8 (6.5-8.0) g/dL Albumin 4.5 (3.5-5.0) g/dL Lipase 51 (8-78) U/L Imaging Data Chest x-ray: Radiologist's impression: FINDINGS: No significant abnormality is noted involving the heart, lungs, mediastinum, bony thorax or soft tissues. XR/XR chest 1V IMPRESSION: No acute cardiopulmonary process. ? CT scan - abdomen: Radiologist's impression: IMPRESSION: -No CT evidence for acute abnormality within the abdomen or pelvis. -Mild hepatomegaly. -Mild colonic diverticulosis. -Several vascular structures within the left hemiabdomen are nonspecific and difficult to evaluate given lack of IV contrast, however, these may represent a splenorenal shunt. ? ECG Data ECG #1: Attestation: I personally reviewed and interpreted this ECG as follows: Interpretation: Normal sinus 65, no st or twave changes Discharge Plan Discharge Clinical Impression: Gastritis and duodenitis, Peptic ulcer disease Patient Disposition: Home, Self-Care Instructions: Peptic Ulcer (ED), Gastritis (ED) Prescriptions: New pantoprazole [Protonix] 40 mg tablet,delayed release (DR/EC) 40 mg PO DAILY Qty: 20 0RF No Action Seroquel Suboxone Zetia atorvastatin sertraline prednisone 20 mg tablet 20 mg PO DAILY Qty: 10 0RF albuterol sulfate 90 mcg/actuation HFA aerosol inhaler 1 inh inhalation QID PRN (Reason: shortness of breath or wheezing) Qty: 8.5 0RF azithromycin [Zithromax Z-Shashank] 250 mg tablet See Rx Instructions .ROUTE .COMPLEX Qty: 6 0RF Rx Instructions: take 500 mg today (day 1), then 250 mg for 4 days (days 2-5) Referrals: Zulma Raymundo NP [Primary Care Provider] - 1 week
[2022-03-01 19:20] LABS: Alanine Aminotransferase 25 U/L (0-31); Albumin Level 4.5 g/dL (3.5-5.0); Alkaline Phosphatase 89 U/L (39-117); Aspartate Amino Transferase 27 U/L (5-31); Bilirubin Direct 0.3 mg/dL (0.0-0.5); Bilirubin Total 0.7 mg/dL (0.0-1.0); Lipase 51 U/L (8-78); Total Protein 6.8 g/dL (6.5-8.0)
[2022-03-01 19:22] VITALS: BP 133/73; PULSE 60; RESP 15; TEMP 36.6; O2SAT 100
[2022-03-01] MEDS: Magnesium Hydrox/Alum Hydrox 30 ML ORAL.SUSP 15 ML PO (19:51)
[2022-03-01] MEDS: Lidocaine HCl Viscous 2 % 15 ML SOLUTION MUCOUS MEM (19:51)
[2022-03-01] MEDS: Pantoprazole Sodium 40 MG/10 ML VIAL IVPUSH (19:51)
[2022-03-01] MEDS: PHENobarb/Hyoscy/Atropine/Scop 10 ML ELIXIR PO (19:51)
== END 2022-03-01 21:13 | disposition home or self-care (01) ==
PROVIDERS: Emergency Provider Emergency Medicine; PCP Nurse Practitioner Family
DX: K29.70 Gastritis, unspecified, without bleeding (principal); K29.80 Duodenitis without bleeding; K27.9 Peptic ulcer, site unspecified, unspecified as acute or chronic, without hemorrhage or perforation; R10.13 Epigastric pain
CPT/HCPCS: 36415; 71045; 74176; 80048; 80076; 83690; 84484; 85025; 93005; 96374; 99284

== ENCOUNTER 2023-01-10 14:01 | Emergency (ER) | payer OTHER, SELFPAY ==
--- NOTE | 2023-01-10 | ECG_ITS ---
Test Reason : CHEST PAIN Blood Pressure : / mmHG Vent. Rate : 071 BPM Atrial Rate : 071 BPM P-R Int : 156 ms QRS Dur : 066 ms QT Int : 388 ms P-R-T Axes : 052 014 039 degrees QTc Int : 421 ms Normal sinus rhythm Low voltage QRS Borderline ECG When compared with ECG of 01-MAR-2022 13:26, No significant change was found Referred By: Generic ED Physician Electronically Signed By:Fernando Hernandez
--- NOTE | ~2023-01-10 | CT_ITS ---
EXAMINATION: CT ANGIOGRAM OF THE CHEST WITH AND WITHOUT CONTRAST (CT PULMONARY ANGIOGRAM FOR PE) CLINICAL INFORMATION: Reason for Exam Dyspnea. COMPARISON: None available. TECHNIQUE: Prior to contrast administration, noncontrast localization images were obtained. Subsequently, multidetector volumetric imaging was performed from the thoracic inlet to below the diaphragms following the administration of 80 mL Omnipaque 350 intravenous contrast. No contrast reaction reported Sagittal, coronal, and MIP oblique sagittal reformatted images were obtained on the CT workstation, uploaded to PACS, and reviewed. This CT examination was performed using dose optimization techniques as appropriate, variously including the following: *Automated exposure control *Adjustment of mA and/or kV according to patient size (this includes techniques or standardized protocols for targeted exams where dose is matched to indication/reason for exam; i.e. extremities or head) *Use of iterative reconstruction technique Total exam dose-length product 157 mGy-cm FINDINGS: QUALITY OF STUDY/CONTRAST BOLUS: Satisfactory. PULMONARY ARTERIES: No pulmonary emboli. THORACIC AORTA: No aneurysm. LUNG: No focal consolidation, nodules or masses. PLEURA: No pleural effusion or pneumothorax. MEDIASTINUM: Normal heart size. No pericardial effusion. No hilar or mediastinal lymphadenopathy. No evidence of septal bowing or right heart strain. CORONARY ARTERY CALCIFICATION: None visualized on this study. CHEST WALL/AXILLA: No axillary or internal mammary lymphadenopathy. There are bilateral saline breast implants. OSSEOUS STRUCTURES: There are multilevel degenerative changes in thoracic spine UPPER ABDOMEN: Unremarkable. No reflux of contrast into the hepatic veins to suggest elevated right heart pressures. CT/CT angio chest PE protocol IMPRESSION: No evidence of pulmonary embolism or any other pathology VTE: negative
--- NOTE | ~2023-01-10 | XR_ITS ---
EXAMINATION: XR CHEST CLINICAL INFORMATION: Cough COMPARISON: 03/01/2022 TECHNIQUE: 2 views of the chest were obtained. FINDINGS: No significant abnormality is noted involving the heart, lungs, mediastinum, bony thorax or soft tissues. XR/XR chest 2V IMPRESSION: Unremarkable examination.
[2023-01-10 14:28] VITALS: BP 102/77; PULSE 72; RESP 18; TEMP 36.6; O2SAT 97; BMI 21.3
--- NOTE | 2023-01-10 14:29 | ED_ITS ---
HPI - Chest Pain General Chief Complaint: Chest Pain Stated Complaint: chest pain/ chest tightness Time Seen by Provider: 01/10/23 15:39 Related Data Home Medications Medication Instructions Recorded Confirmed Seroquel 07/20/20 Suboxone 07/20/20 07/20/20 Zetia 07/20/20 atorvastatin 07/20/20 sertraline 07/20/20 Previous Rx's Medication Instructions Recorded albuterol sulfate 90 mcg/actuation 1 inh inhalation QID PRN shortness 07/20/20 aerosol inhaler of breath or wheezing #8.5 grams azithromycin 250 mg tablet See Rx Instructions PO .COMPLEX #6 07/20/20 (Zithromax Z-Shashank) tabs prednisone 20 mg tablet 20 mg PO DAILY #10 tabs 07/20/20 pantoprazole 40 mg tablet,delayed 40 mg PO DAILY #20 tabs 03/01/22 release (Protonix) albuterol sulfate 90 mcg/actuation 1 inh inhalation QID PRN shortness 01/10/23 aerosol inhaler of breath or wheezing #8.5 grams prednisone 20 mg tablet 40 mg PO DAILY #10 tabs 01/10/23 Allergies Allergy/AdvReac Type Severity Reaction Status Date / Time diphenhydramine Allergy Intermediate Involuntary Verified 01/10/23 14:31 [From Benadryl] Spasms codeine [Codeine] AdvReac Intermediate RASH/ITCHY Verified 01/10/23 14:31 morphine [MORPHINE] AdvReac Intermediate RASH Verified 01/10/23 14:31 procaine [From Novocain] AdvReac Mild HEART Verified 01/10/23 14:31 RACING PMFSH Past Medical History Medical History Anxiety COPD (chronic obstructive pulmonary disease) Depression Hypercholesteremia Surgical History History of hysterectomy Social History Social History Alcohol intake: never Smoked in Last 30 Days: Yes Use of substances other than those prescribed or required for medical reasons: No Advance Directives: Yes Advance Directives on File: Yes Advance Directives Date on File: 07/20/20 Physical Exam Vital Signs: Vital Signs: Last Vital Signs Temp 98.6 F 01/10/23 19:35 Pulse 76 01/10/23 19:35 Resp 17 01/10/23 19:35 BP 97/54 L 01/10/23 19:35 Pulse Ox 99 01/10/23 19:35 O2 Del Method Room Air 01/10/23 19:35 BMI result Body Mass Index 21.3 Course Course Course Narrative: RME - 67 y/o female with history of mild intermittent asthma who presents to the ER for evaluation of constant, chest pressure and aching for the last 2 weeks. She was recently sick with a URI. She reports ongoing aching in the chest, generalized weakness, headaches and SOB. VSS in triage. Lungs CTAB. Plan: CXR, EKG, lab workup, viral swabs Reevaluation(s) Reevaluation #1: See Dr. Holden's note for full evaluation and treatment. Medications Administered Discontinued Medications Generic Name Dose Route Start Last Admin Trade Name Freq PRN Reason Stop Dose Admin Albuterol/Ipratropium 3 ml 01/10/23 15:48 01/10/23 16:45 Albuterol/Iprat 2.5/0.5mg 3 Ml Ampul.Neb INHALE 01/10/23 15:49 3 ml ONCE ONE Administration Iohexol 100 ml 01/10/23 18:34 01/10/23 18:35 Iohexol 350 Mg/Ml 100 Ml Infus..Btl IV 01/10/23 18:35 65 ml ONCE ONE Administration Prednisone 60 mg 01/10/23 15:48 01/10/23 15:58 Prednisone 20 Mg Tablet PO 01/10/23 15:49 60 mg ONCE ONE Administration Medical Decision Making Lab Data 01/10/23 14:42 01/10/23 14:42 Labs: Lab Results 01/10/23 01/10/23 01/10/23 Range/Units 14:42 14:42 14:42 WBC 6.4 (4.8-10.8) X10*3/uL RBC 4.46 (4.20-5.50) X10*6/uL Hgb 13.6 (12.0-16.0) g/dl Hct 41.3 (37.0-47.0) % MCV 92.6 (80.0-98.0) fL MCH 30.5 (27.0-33.0) pg MCHC 32.9 (31.0-35.0) g/dl RDW 12.3 (11.0-16.0) % Plt Count 342 (160-400) X10*3/uL MPV 9.3 L (9.4-12.3) fL Immature Gran % (Auto) 0.2 (0.0-0.4) % Neut % (Auto) 53.6 (45-73) % Lymph % (Auto) 39.0 (20-40) % [place] % (Auto) 5.6 (2-11) % Eos % (Auto) 1.1 (0-4) % Baso % (Auto) 0.5 (0-2) % Lymph # (Auto) 2.5 (1.2-4.9) X10*3/uL [place] # (Auto) 0.4 (0.1-1.2) X10*3/uL Eos # (Auto) 0.1 (0.0-0.4) X10*3/uL Baso # (Auto) 0.0 (0.0-0.2) X10*3/uL Abs Immat Gran (auto) 0.01 (0.00-0.03) X10*3/uL Absolute Neuts (auto) 3.5 (2.0-8.3) x10*3/uL Absolute Nucleated RBC 0.000 (0.0-0.012) X10*3/uL Nucleated RBC % (auto) 0.0 (0.0-0.2) /100WBC D-Dimer High Sensitivty NG/ML Sodium 142 (135-145) mmol/L Potassium 4.4 (3.3-5.1) mmol/L Chloride 107 (96-108) mmol/L Carbon Dioxide 30 H (22-29) mmol/L Anion Gap 9 L (12-20) BUN 15 (9-16) mg/dL Creatinine 0.84 (0.5-1.4) mg/dL Estim Creat Clear Calc 52.3 Estimated GFR > 60 Random Glucose 97 (60-115) mg/dL Calcium 10.0 D (8.4-10.2) mg/dL Magnesium 2.2 (1.6-2.6) mg/dL Total Bilirubin 0.6 (0.0-1.0) mg/dL Direct Bilirubin 0.1 (0.0-0.5) mg/dL AST 24 (5-31) U/L ALT 17 (0-31) U/L Alkaline Phosphatase 84 (39-117) U/L Troponin I High Sens < 2.7 (<3.5-17.0) ng/L B-Natriuretic Peptide (<100) pg/mL Total Protein 7.0 (6.5-8.0) g/dL Albumin 4.6 (3.5-5.0) g/dL Influenza Type A (PCR) (Negative) Influenza Type B (PCR) (Negative) RSV RNA Qual (PCR) (Negative) SARS-CoV-2 RNA (RT-PCR) (Negative) 01/10/23 01/10/23 01/10/23 Range/Units 14:42 14:42 16:53 WBC (4.8-10.8) X10*3/uL RBC (4.20-5.50) X10*6/uL Hgb (12.0-16.0) g/dl Hct (37.0-47.0) % MCV (80.0-98.0) fL MCH (27.0-33.0) pg MCHC (31.0-35.0) g/dl RDW (11.0-16.0) % Plt Count (160-400) X10*3/uL MPV (9.4-12.3) fL Immature Gran % (Auto) (0.0-0.4) % Neut % (Auto) (45-73) % Lymph % (Auto) (20-40) % [place] % (Auto) (2-11) % Eos % (Auto) (0-4) % Baso % (Auto) (0-2) % Lymph # (Auto) (1.2-4.9) X10*3/uL [place] # (Auto) (0.1-1.2) X10*3/uL Eos # (Auto) (0.0-0.4) X10*3/uL Baso # (Auto) (0.0-0.2) X10*3/uL Abs Immat Gran (auto) (0.00-0.03) X10*3/uL Absolute Neuts (auto) (2.0-8.3) x10*3/uL Absolute Nucleated RBC (0.0-0.012) X10*3/uL Nucleated RBC % (auto) (0.0-0.2) /100WBC D-Dimer High Sensitivty < 150 NG/ML Sodium (135-145) mmol/L Potassium (3.3-5.1) mmol/L Chloride (96-108) mmol/L Carbon Dioxide (22-29) mmol/L Anion Gap (12-20) BUN (9-16) mg/dL Creatinine (0.5-1.4) mg/dL Estim Creat Clear Calc Estimated GFR Random Glucose (60-115) mg/dL Calcium (8.4-10.2) mg/dL Magnesium (1.6-2.6) mg/dL Total Bilirubin (0.0-1.0) mg/dL Direct Bilirubin (0.0-0.5) mg/dL AST (5-31) U/L ALT (0-31) U/L Alkaline Phosphatase (39-117) U/L Troponin I High Sens (<3.5-17.0) ng/L B-Natriuretic Peptide 13 (<100) pg/mL Total Protein (6.5-8.0) g/dL Albumin (3.5-5.0) g/dL Influenza Type A (PCR) NEGATIVE (Negative) Influenza Type B (PCR) NEGATIVE (Negative) RSV RNA Qual (PCR) NEGATIVE (Negative) SARS-CoV-2 RNA (RT-PCR) NEGATIVE (Negative) Discharge Plan Discharge Clinical Impression: Acute bronchospasm Patient Disposition: Home, Self-Care Instructions: Bronchospasm (ED) Prescriptions: New prednisone 20 mg tablet 40 mg PO DAILY Qty: 10 0RF albuterol sulfate 90 mcg/actuation HFA aerosol inhaler 1 inh inhalation QID PRN (Reason: shortness of breath or wheezing) Qty: 8.5 0RF No Action Seroquel Suboxone Zetia atorvastatin sertraline prednisone 20 mg tablet 20 mg PO DAILY Qty: 10 0RF albuterol sulfate 90 mcg/actuation HFA aerosol inhaler 1 inh inhalation QID PRN (Reason: shortness of breath or wheezing) Qty: 8.5 0RF azithromycin [Zithromax Z-Shashank] 250 mg tablet See Rx Instructions .ROUTE .COMPLEX Qty: 6 0RF Rx Instructions: take 500 mg today (day 1), then 250 mg for 4 days (days 2-5) pantoprazole [Protonix] 40 mg tablet,delayed release (DR/EC) 40 mg PO DAILY Qty: 20 0RF Interventions: ED Discharge Assessment Last Done: 01/10/23 19:50 Discharge Date/Time: 01/10/23 19:51
[2023-01-10 14:52] LABS: MANUAL DIFF FLAG NO
[2023-01-10 14:54] LABS: Basophils Percent Auto 0.5 % (0-2); Eosinophils Absolute Auto 0.1 X10*3/uL (0.0-0.4); Eosinophils Percent Auto 1.1 % (0-4); Hematocrit 41.3 % (37.0-47.0); Hemoglobin 13.6 g/dl (12.0-16.0); Imm Gran Abs Auto 0.01 X10*3/uL (0.00-0.03); Imm Gran Pct Auto 0.2 % (0.0-0.4); Lymphocytes Absolute Auto 2.5 X10*3/uL (1.2-4.9); Mean Corpuscular HGB Conc 32.9 g/dl (31.0-35.0); Mean Corpuscular Hemoglobin 30.5 pg (27.0-33.0); Mean Corpuscular Volume 92.6 fL (80.0-98.0); Mean Platelet Volume 9.3 fL (9.4-12.3); Monocytes Absolute Auto 0.4 X10*3/uL (0.1-1.2); Monocytes Percent Auto 5.6 % (2-11); Neutrophils Absolute Auto 3.5 x10*3/uL (2.0-8.3); Neutrophils Percent Auto 53.6 % (45-73); Platelet Count 342 X10*3/uL (160-400); Red Blood Count 4.46 X10*6/uL (4.20-5.50); Red Cell Distribution Width 12.3 % (11.0-16.0); White Blood Count 6.4 X10*3/uL (4.8-10.8)
[2023-01-10 15:12] LABS: Alanine Aminotransferase 17 U/L (0-31); Albumin Level 4.6 g/dL (3.5-5.0); Alkaline Phosphatase 84 U/L (39-117); Anion Gap 9 (12-20); Aspartate Amino Transferase 24 U/L (5-31); Bilirubin Direct 0.1 mg/dL (0.0-0.5); Bilirubin Total 0.6 mg/dL (0.0-1.0); Blood Urea Nitrogen 15 mg/dL (9-16); Carbon Dioxide 30 mmol/L (22-29); Chloride 107 mmol/L (96-108); Creatinine Clr Calc Pharmacy 52.3; Estimated Glomerular Filt Rate > 60; Glucose Random 97 mg/dL (60-115); Magnesium 2.2 mg/dL (1.6-2.6); Potassium 4.4 mmol/L (3.3-5.1); Sodium 142 mmol/L (135-145)
[2023-01-10 15:16] LABS: B Type Natriuretic Peptide 13 pg/mL (<100)
[2023-01-10 15:25] LABS: Troponin-I High Sensitivity < 2.7 ng/L (<3.5-17.0)
[2023-01-10 15:30] LABS: Influenza A PCR NEGATIVE (Negative); Influenza B PCR NEGATIVE (Negative); Resp Syncy Virus RNA Qual PCR NEGATIVE (Negative); SARS COV2 PCR INHOUSE NEGATIVE (Negative)
--- NOTE | 2023-01-10 15:49 | ED_ITS ---
HPI - Chest Pain General Chief Complaint: Chest Pain Stated Complaint: chest pain/ chest tightness Time Seen by Provider: 01/10/23 15:39 Source: patient and old records reviewed History of Present Illness HPI narrative: Patient presents complaining of chest pressure. She states it has been present for 2 weeks. Started when she was diagnosed with a sinus infection and ear infection for which she has been treated with amoxicillin. She has an albuterol inhaler which she does not think is been helping. She has not been on steroids. She describes the sensation as a chest pressure which is worse with inspiration. No radiation of pain. Positive dyspnea with exertion. No prior history of similar issues Cardiac risk factors include smoking. No history of cardiac disease. She states she was told at 1 point she had asthma or COPD but has typically not had symptoms. No history of thromboembolic disease. No extremity swelling or calf pain Related Data Home Medications Medication Instructions Recorded Confirmed Seroquel 07/20/20 Suboxone 07/20/20 07/20/20 Zetia 07/20/20 atorvastatin 07/20/20 sertraline 07/20/20 Previous Rx's Medication Instructions Recorded albuterol sulfate 90 mcg/actuation 1 inh inhalation QID PRN shortness 07/20/20 aerosol inhaler of breath or wheezing #8.5 grams azithromycin 250 mg tablet See Rx Instructions PO .COMPLEX #6 07/20/20 (Zithromax Z-Shashank) tabs prednisone 20 mg tablet 20 mg PO DAILY #10 tabs 07/20/20 pantoprazole 40 mg tablet,delayed 40 mg PO DAILY #20 tabs 03/01/22 release (Protonix) albuterol sulfate 90 mcg/actuation 1 inh inhalation QID PRN shortness 01/10/23 aerosol inhaler of breath or wheezing #8.5 grams prednisone 20 mg tablet 40 mg PO DAILY #10 tabs 01/10/23 Allergies Allergy/AdvReac Type Severity Reaction Status Date / Time diphenhydramine Allergy Intermediate Involuntary Verified 01/10/23 14:31 [From Benadryl] Spasms codeine [Codeine] AdvReac Intermediate RASH/ITCHY Verified 01/10/23 14:31 morphine [MORPHINE] AdvReac Intermediate RASH Verified 01/10/23 14:31 procaine [From Novocain] AdvReac Mild HEART Verified 01/10/23 14:31 RACING Review of Systems Constitutional: Comments: No fevers or chills ENT: Comments: Sore throat. Dizziness when she walks. Cardiovascular: Comments: Chest pressure as described Respiratory: Comments: Cough with dyspnea on exertion Gastrointestinal: Comments: No nausea or vomiting or abdominal pain Musculoskeletal: Comments: No extremity pain or pedal edema Neurologic: Comments: No focal weakness PMF Past Medical History Medical History Anxiety COPD (chronic obstructive pulmonary disease) Depression Hypercholesteremia Surgical History History of hysterectomy Social History Social History Alcohol intake: never Smoked in Last 30 Days: Yes Use of substances other than those prescribed or required for medical reasons: No Advance Directives: Yes Advance Directives on File: Yes Advance Directives Date on File: 07/20/20 Physical Exam Vital Signs: Vital Signs: Last Vital Signs Temp 98.1 F 01/10/23 18:14 Pulse 64 01/10/23 18:14 Resp 16 01/10/23 18:14 BP 95/61 01/10/23 18:14 Pulse Ox 95 01/10/23 18:14 O2 Del Method Room Air 01/10/23 18:14 BMI result Body Mass Index 21.3 Const: Other: Awake alert. No acute distress. Vital signs stable. Chest: Other: Chest wall nontender Resp: Other: Rhonchorous bilaterally with expiratory wheezes. Fair air entry. Cardio: Other: Regular rate and rhythm without murmurs rubs or gallops. Skin: Other: Warm pink and dry without rash Neuro: Other: Nonfocal neuro exam Medications Administered Discontinued Medications Generic Name Dose Route Start Last Admin Trade Name Freq PRN Reason Stop Dose Admin Albuterol/Ipratropium 3 ml 01/10/23 15:48 01/10/23 16:45 Albuterol/Iprat 2.5/0.5mg 3 Ml Ampul.Neb INHALE 01/10/23 15:49 3 ml ONCE ONE Administration Iohexol 100 ml 01/10/23 18:34 01/10/23 18:35 Iohexol 350 Mg/Ml 100 Ml Infus..Btl IV 01/10/23 18:35 65 ml ONCE ONE Administration Prednisone 60 mg 01/10/23 15:48 01/10/23 15:58 Prednisone 20 Mg Tablet PO 01/10/23 15:49 60 mg ONCE ONE Administration Medical Decision Making Medical Decision Making [facility] Narrative: Patient with 2 weeks of chest pain. Musculoskeletal pain versus cardiac pain versus thromboembolic pain. Pneumonia bronchitis also possibilities. 15:54. EKG shows normal sinus rhythm without ischemic changes. No dysrhythmia. Lab work so far is reassuring with normal CBC without white count. Chemistry showed no actionable results. Bicarb is mildly elevated at 30. Creatinine is normal. Troponin is less than 2.7. BNP is normal. LFTs are normal. Given 2 weeks of constant pain with normal EKG and normal troponin, cardiac etiology is centrally rule out. Will add on D-dimer. Chest x-ray. Await results. 16:59. Workup in the emergency department is reassuring. Troponin is negative. D-dimer is normal Chest x-ray is normal The patient is currently receiving albuterol treatment. Will re-evaluate post treatment 17:23. Patient is still dyspneic despite treatment. She also states that her PCP was requesting CT scan secondary to long-term smoking history with concern for potential underlying mass as well as thromboembolic disease. Given the above, will order CT angiography which will also potentially evaluate for underlying infiltrates. 19:26. CT scan without obvious pathology. Patient is stable for discharge home Lab Data 01/10/23 14:42 01/10/23 14:42 Labs: Lab Results 01/10/23 01/10/23 01/10/23 Range/Units 14:42 14:42 14:42 WBC 6.4 (4.8-10.8) X10*3/uL RBC 4.46 (4.20-5.50) X10*6/uL Hgb 13.6 (12.0-16.0) g/dl Hct 41.3 (37.0-47.0) % MCV 92.6 (80.0-98.0) fL MCH 30.5 (27.0-33.0) pg MCHC 32.9 (31.0-35.0) g/dl RDW 12.3 (11.0-16.0) % Plt Count 342 (160-400) X10*3/uL MPV 9.3 L (9.4-12.3) fL Immature Gran % (Auto) 0.2 (0.0-0.4) % Neut % (Auto) 53.6 (45-73) % Lymph % (Auto) 39.0 (20-40) % Meagher % (Auto) 5.6 (2-11) % Eos % (Auto) 1.1 (0-4) % Baso % (Auto) 0.5 (0-2) % Lymph # (Auto) 2.5 (1.2-4.9) X10*3/uL Meagher # (Auto) 0.4 (0.1-1.2) X10*3/uL Eos # (Auto) 0.1 (0.0-0.4) X10*3/uL Baso # (Auto) 0.0 (0.0-0.2) X10*3/uL Abs Immat Gran (auto) 0.01 (0.00-0.03) X10*3/uL Absolute Neuts (auto) 3.5 (2.0-8.3) x10*3/uL Absolute Nucleated RBC 0.000 (0.0-0.012) X10*3/uL Nucleated RBC % (auto) 0.0 (0.0-0.2) /100WBC D-Dimer High Sensitivty NG/ML Sodium 142 (135-145) mmol/L Potassium 4.4 (3.3-5.1) mmol/L Chloride 107 (96-108) mmol/L Carbon Dioxide 30 H (22-29) mmol/L Anion Gap 9 L (12-20) BUN 15 (9-16) mg/dL Creatinine 0.84 (0.5-1.4) mg/dL Estim Creat Clear Calc 52.3 Estimated GFR > 60 Random Glucose 97 (60-115) mg/dL Calcium 10.0 D (8.4-10.2) mg/dL Magnesium 2.2 (1.6-2.6) mg/dL Total Bilirubin 0.6 (0.0-1.0) mg/dL Direct Bilirubin 0.1 (0.0-0.5) mg/dL AST 24 (5-31) U/L ALT 17 (0-31) U/L Alkaline Phosphatase 84 (39-117) U/L Troponin I High Sens < 2.7 (<3.5-17.0) ng/L B-Natriuretic Peptide (<100) pg/mL Total Protein 7.0 (6.5-8.0) g/dL Albumin 4.6 (3.5-5.0) g/dL Influenza Type A (PCR) (Negative) Influenza Type B (PCR) (Negative) RSV RNA Qual (PCR) (Negative) SARS-CoV-2 RNA (RT-PCR) (Negative) 01/10/23 01/10/23 01/10/23 Range/Units 14:42 14:42 16:53 WBC (4.8-10.8) X10*3/uL RBC (4.20-5.50) X10*6/uL Hgb (12.0-16.0) g/dl Hct (37.0-47.0) % MCV (80.0-98.0) fL MCH (27.0-33.0) pg MCHC (31.0-35.0) g/dl RDW (11.0-16.0) % Plt Count (160-400) X10*3/uL MPV (9.4-12.3) fL Immature Gran % (Auto) (0.0-0.4) % Neut % (Auto) (45-73) % Lymph % (Auto) (20-40) % Meagher % (Auto) (2-11) % Eos % (Auto) (0-4) % Baso % (Auto) (0-2) % Lymph # (Auto) (1.2-4.9) X10*3/uL Meagher # (Auto) (0.1-1.2) X10*3/uL Eos # (Auto) (0.0-0.4) X10*3/uL Baso # (Auto) (0.0-0.2) X10*3/uL Abs Immat Gran (auto) (0.00-0.03) X10*3/uL Absolute Neuts (auto) (2.0-8.3) x10*3/uL Absolute Nucleated RBC (0.0-0.012) X10*3/uL Nucleated RBC % (auto) (0.0-0.2) /100WBC D-Dimer High Sensitivty < 150 NG/ML Sodium (135-145) mmol/L Potassium (3.3-5.1) mmol/L Chloride (96-108) mmol/L Carbon Dioxide (22-29) mmol/L Anion Gap (12-20) BUN (9-16) mg/dL Creatinine (0.5-1.4) mg/dL Estim Creat Clear Calc Estimated GFR Random Glucose (60-115) mg/dL Calcium (8.4-10.2) mg/dL Magnesium (1.6-2.6) mg/dL Total Bilirubin (0.0-1.0) mg/dL Direct Bilirubin (0.0-0.5) mg/dL AST (5-31) U/L ALT (0-31) U/L Alkaline Phosphatase (39-117) U/L Troponin I High Sens (<3.5-17.0) ng/L B-Natriuretic Peptide 13 (<100) pg/mL Total Protein (6.5-8.0) g/dL Albumin (3.5-5.0) g/dL Influenza Type A (PCR) NEGATIVE (Negative) Influenza Type B (PCR) NEGATIVE (Negative) RSV RNA Qual (PCR) NEGATIVE (Negative) SARS-CoV-2 RNA (RT-PCR) NEGATIVE (Negative) Discharge Plan Discharge Clinical Impression: Acute bronchospasm Patient Disposition: Home, Self-Care Instructions: Bronchospasm (ED) Prescriptions: New prednisone 20 mg tablet 40 mg PO DAILY Qty: 10 0RF albuterol sulfate 90 mcg/actuation HFA aerosol inhaler 1 inh inhalation QID PRN (Reason: shortness of breath or wheezing) Qty: 8.5 0RF No Action Seroquel Suboxone Zetia atorvastatin sertraline prednisone 20 mg tablet 20 mg PO DAILY Qty: 10 0RF albuterol sulfate 90 mcg/actuation HFA aerosol inhaler 1 inh inhalation QID PRN (Reason: shortness of breath or wheezing) Qty: 8.5 0RF azithromycin [Zithromax Z-Shashank] 250 mg tablet See Rx Instructions .ROUTE .COMPLEX Qty: 6 0RF Rx Instructions: take 500 mg today (day 1), then 250 mg for 4 days (days 2-5) pantoprazole [Protonix] 40 mg tablet,delayed release (DR/EC) 40 mg PO DAILY Qty: 20 0RF
[2023-01-10] MEDS: predniSONE 20 MG TABLET 60 MG PO (15:58)
[2023-01-10 16:21] VITALS: BP 108/76; PULSE 58; RESP 15; TEMP 36.6; O2SAT 98
[2023-01-10] MEDS: Albuterol/Iprat 2.5/0.5MG 3 ML AMPUL.NEB INHALE (16:45)
[2023-01-10 16:47] VITALS: PULSE 58; RESP 16; O2SAT 98
[2023-01-10 17:19] LABS: D Dimer High Sensitivity < 150 NG/ML
[2023-01-10 18:14] VITALS: BP 95/61; PULSE 64; RESP 16; TEMP 36.7; O2SAT 95
[2023-01-10] MEDS: iohexoL 350 MG/ML 100 ML INFUS..BTL IV (18:35)
[2023-01-10 19:35] VITALS: BP 97/54; PULSE 76; RESP 17; TEMP 37; O2SAT 99
--- NOTE | 2023-01-10 19:49 | PC.NURSE ---
pt calm and cooperative. iv removed at time of discharge. vs within pt baseline range. pt ambulatory at discharge. pt provided with discharge packet. pt verbalized understanding of discharge plan
== END 2023-01-10 19:51 | disposition home or self-care (01) ==
PROVIDERS: Physician Assistant; Emergency Provider Emergency Medicine; PCP Nurse Practitioner Family
DX: J98.01 Acute bronchospasm (principal); R07.89 Other chest pain; R06.02 Shortness of breath; Z20.822 Contact with and (suspected) exposure to COVID-19; Z20.828 Contact with and (suspected) exposure to other viral communicable diseases; Z79.899 Other long term (current) drug therapy
CPT/HCPCS: 0241U; 36415; 71046; 71275; 80048; 80076; 83735; 83880; 84484; 85025; 85379; 93005; 94640; 99284; 99285; Q9967

== ENCOUNTER 2023-05-10 09:18 | Emergency (ER) | payer OTHER, SELFPAY ==
[2023-05-10] VITALS (8 sets, daily range): BP systolic 89–116; BP diastolic 44–68; PULSE 52–82; RESP 16–18; TEMP 37; O2SAT 98–100; BMI 23.5
--- NOTE | ~2023-05-10 | CT_ITS ---
EXAMINATION: CT HEAD WITHOUT CONTRAST CLINICAL INFORMATION: Dizziness, presyncope COMPARISON: 11/13/2017 TECHNIQUE: Contiguous axial imaging was performed from the skull base to vertex without intravenous administration of contrast. This CT examination was performed using dose optimization techniques as appropriate, variously including the following: *Automated exposure control *Adjustment of mA and/or kV according to patient size (this includes techniques or standardized protocols for targeted exams where dose is matched to indication/reason for exam; i.e. extremities or head) *Use of iterative reconstruction technique DLP: 598 mGy-cm FINDINGS: The ventricles and sulci are normal in size and configuration. No acute hemorrhage, mass effect or shift is evident. Teran-white differentiation is maintained. In the posterior fossa, the brainstem, cerebellum and fourth ventricle image normally. The orbits and calvarium are intact. The paranasal sinuses and mastoid air cells are well pneumatized and clear. CT/CT head/brain wo IV con IMPRESSION: 1. Unremarkable noncontrast brain CT. No acute hemorrhage, mass effect or shift. No significant change since 11/13/2017.
--- NOTE | ~2023-05-10 | XR_ITS ---
EXAMINATION: XR CHEST 10:38 AM CLINICAL INFORMATION: Dizziness, bradycardia COMPARISON: 01/10/2023 TECHNIQUE: Frontal view of the chest was obtained. FINDINGS: No significant abnormality is noted involving the heart, lungs, mediastinum, bony thorax or soft tissues. XR/XR chest 1V IMPRESSION: Unremarkable examination.
--- NOTE | 2023-05-10 09:28 | ECG_ITS ---
Test Reason : SOB Blood Pressure : / mmHG Vent. Rate : 058 BPM Atrial Rate : 058 BPM P-R Int : 134 ms QRS Dur : 066 ms QT Int : 408 ms P-R-T Axes : 012 010 017 degrees QTc Int : 400 ms Sinus bradycardia Low voltage QRS Borderline ECG When compared with ECG of 10-JAN-2023 14:36, Heart rate has decreased Referred By: Generic ED Physician Electronically Signed By:SUNIL STOKES
--- NOTE | 2023-05-10 09:55 | ED_ITS ---
HPI - General Adult General Chief complaint: General Medical Stated complaint: NAUSEA,CP,SOB,LIGHTHEADED [id number] Time Seen by Provider: 05/10/23 09:47 Source: patient Mode of arrival: EMS Limitations: no limitations History of Present Illness HPI narrative: 67-year-old female with PMHx of anxiety, depression, COPD, presents to the ED today with dizziness, chest pressure, and fatigue x1 month. Reports dizziness described as feeling faint , worsening this morning prompting her to come to the ED. Denies any falls. Reports SOB and constant chest pressure located centrally. Denies chest pain, radiation of symptoms, or palpitations. Nothing exacerbates or relieves her symptoms. Additionally reports increasing fatigue, tingling in her fingers and toes, and multiple episodes of loose stools over the last month. Denies fever, chills, headaches, constipation, BRBPR, melana, nausea or vomiting, abdominal pain. Related Data Home Medications Medication Instructions Recorded Confirmed Seroquel 07/20/20 Suboxone 07/20/20 07/20/20 Zetia 07/20/20 atorvastatin 07/20/20 sertraline 07/20/20 Previous Rx's Medication Instructions Recorded albuterol sulfate 90 mcg/actuation 1 inh inhalation QID PRN shortness 07/20/20 aerosol inhaler of breath or wheezing #8.5 grams azithromycin 250 mg tablet See Rx Instructions PO .COMPLEX #6 07/20/20 (Zithromax Z-Shashank) tabs prednisone 20 mg tablet 20 mg PO DAILY #10 tabs 07/20/20 pantoprazole 40 mg tablet,delayed 40 mg PO DAILY #20 tabs 03/01/22 release (Protonix) albuterol sulfate 90 mcg/actuation 1 inh inhalation QID PRN shortness 01/10/23 aerosol inhaler of breath or wheezing #8.5 grams prednisone 20 mg tablet 40 mg (2 x 20 mg) PO DAILY #10 tabs 01/10/23 ondansetron 4 mg disintegrating 4 mg PO DAILY PRN nausea and 05/10/23 tablet vomiting 5 days #14 tabs Allergies Allergy/AdvReac Type Severity Reaction Status Date / Time diphenhydramine Allergy Intermediate Involuntary Verified 01/10/23 14:31 [From Benadryl] Spasms codeine [Codeine] AdvReac Intermediate RASH/ITCHY Verified 01/10/23 14:31 morphine [MORPHINE] AdvReac Intermediate RASH Verified 01/10/23 14:31 procaine [From Novocain] AdvReac Mild HEART Verified 01/10/23 14:31 RACING Review of Systems 2 Review of Systems: Constitutional: No fever, No chills, + fatigue, No malaise ENT/Mouth: No ear pain, No hearing loss, No nasal congestion, No sinus pain, No rhinorrhea, No sore throat Eyes: No eye pain, No swelling, No redness, No vision changes, No foreign body, No discharge Cardio: + chest pressure, No palpitations, No dyspnea on exertion, No orthopnea, No edema Respiratory: + SOB, No cough, No sputum, No wheezing, No dyspnea, No hemoptysis GI: No nausea, No vomiting, No hematemesis, No abdominal pain, + diarrhea, No constipation, No hematochezia, No melena : No irregular bleeding, No dysuria, No frequency, No urgency, No hesitancy, No hematuria, No flank pain MSK: No back pain, No neck pain, No joint pain, No myalgias Skin: No skin lesions, No rashes Neuro: No weakness, No numbness, No paresthesias, No LOC, + dizziness, No headache Psych: No anxiety/panic, No depression, No SI/HI, No AH/VH Heme/Lymph: No bruising, No bleeding, No lymphadenopathy Endocrine: No Polyuria, No Polydipsia, No Temperature Intolerance All other systems reviewed and are negative. [facility] Past Medical History Attestation statement: The following information was validated with the patient. Source: old records reviewed and nursing notes reviewed Medical History Depression Anxiety COPD (chronic obstructive pulmonary disease) Hypercholesteremia Surgical History History of hysterectomy Social History Social History Alcohol intake: never Smoked in Last 30 Days: Yes Use of substances other than those prescribed or required for medical reasons: No Advance Directives: Yes Advance Directives on File: Yes Advance Directives Date on File: 07/20/20 Physical Exam ED Vital Signs: Vital Signs - 24 hr 09/14/23 09:31 05/10/23 10:09 05/10/23 10:44 Temperature 98.6 F 98.6 F Pulse Rate 59 58 52 Respiratory Rate 16 18 Blood Pressure 113/57 L 101/67 89/52 L Pulse Oximetry 100 100 Oxygen Delivery Method Room Air Room Air 05/10/23 10:44 05/10/23 10:47 05/10/23 12:10 Temperature 98.6 F Pulse Rate 59 59 52 Respiratory Rate 16 Blood Pressure 111/66 112/65 116/50 L Pulse Oximetry 100 Oxygen Delivery Method Room Air 05/10/23 12:59 05/10/23 14:45 Temperature Pulse Rate 55 59 Respiratory Rate 16 18 Blood Pressure 90/44 L 115/54 L Pulse Oximetry 98 98 Oxygen Delivery Method Room Air Room Air BMI result Body Mass Index 23.5 Vital signs notable for bradycardia to 59. Normotensive. General: Nontoxic appearing. NAD. Skin: Warm and dry. No rashes or lesions. Head: Normocephalic, atraumatic. EENT: PERRLA. EOM intact. No nystagmus. Moist mucous membranes. Neck: Supple without LAD. Normal ROM. Trachea midline. Cardiac: Chest wall symmetric. RRR. S1 and S1 appreciated. No MRG. No JVD. Lungs: CTA bilaterally. No rales, rhonchi, or wheezes. Normal respiratory effort without accessory muscle use. Abdomen: No visible lesions or scars. Soft, non-tender, non-distended. No rebound tenderness or guarding. Normoactive BS x4. Spine: No midline spinous tenderness. No deformity or step off. Ext: Upper and lower extremities atraumatic. Capillary refill <2 seconds in all extremities. Pulses 2+ equal b/l. No edema, cyanosis, or clubbing. Neuro: Alert and oriented x3. Normal speech. CN 2-12 grossly intact. Strength 5/5 intact throughout. Sensation intact to light touch. NV intact distally. Reflexes 2+ bilaterally. normal [id number], [id number]. Ambulating with steady gait. Psych: Appropriate mood and affect. Responds appropriately to questions. Rectal exam performed. NADIA Ruelas present in room to equipment cleaner and tester. Normal rectal sphincter tone. No external masses or lesions. Stool is normal in appearance. Guiac negative. Course Course Course Narrative: 1100-- CBC without leukocytosis, chronically anemia > will obtain stool Hemoccult. Patient afebrile, not tachycardic, normotensive > no concern for infection at this time. Chemistry notable for anion gap of 10 likely secondary to multiple episodes of diarrhea x1 mo > IVF ordered. BMP WNL. Troponin negative > will repeat in 3 hours. EKG showing sinus bradycardia at a rate of 58 ppm with low-voltage QRS > Unlikely ACS. CXR unremarkable > r/o pneumonia. Trachea midline, no JVD > Unlikely cardiac tamponade. Urine negative for infection > no UTI. Serology negative for COVID, flu. 1130-- orthostatic vitals negative however patient noted to be hypotensive at 89/52 while supine > second L of fluids ordered. > UDS ordered 1210 -- Meclizine contraindicated due to patient's diphenhydramine allergy > zofran ordered. Urine drug screen negative. > Hemoccult negative > unlikely GI bleed. > B12, folate, TSH ordered 1312-- TSH WNL. Folate and B12 WNL. Patient hypotensive to 90/44 > 3rd L of IVF hanging. Patient still bradycardic to 55, dizziness relieved with zofran. Repeat troponin ordered. 1418-- upon re-eval pt states she is feeling better. Will have nurse ambulate the patient. Informed her that her labs came back WNL. Plan to repeat troponin to officially r/o cardiac etiology. > Upon chart review, patient's HR has been chronically bradycardic with a soft BP dating back to 2020 > this appears to be patient's baseline. If the patient is able to ambulate independently without becoming symptomatic, I feel comfortable discharging the patient home with Zofran and close primary care follow-up. 1444-- Repeat troponin negative. Patient ambulating with steady gait to the bathroom. States that her dizziness has improved. Used shared decision making with the patient to determine disposition. At this time I feel comfortable discharging patient home with Zofran. Discussed strict return precautions and educated patient on the importance on follow-up with her PCP as this dizziness may be chronic and prompt further management. All questions answered. Stable for discharge. Medications Administered Discontinued Medications Generic Name Dose Route Start Last Admin Trade Name Freq PRN Reason Stop Dose Admin Sodium Chloride 1,000 mls @ 999 mls/hr 05/10/23 10:15 05/10/23 11:32 Ns IV 05/10/23 11:15 Infused .Q1H1M MICHAEL Infusion Sodium Chloride 1,000 mls @ 999 mls/hr 05/10/23 10:30 05/10/23 12:52 Ns IV 05/10/23 11:30 Infused .Q1H1M MICHAEL Infusion Sodium Chloride 1,000 mls @ 999 mls/hr 05/10/23 13:00 05/10/23 14:45 Ns IV 05/10/23 14:00 Infused .Q1H1M MICHAEL Infusion Ondansetron HCl 4 mg 05/10/23 12:09 05/10/23 12:20 Ondansetron Hcl 4 Mg/2 Ml Vial IVPUSH 05/10/23 12:10 4 mg ONCE ONE Administration Procedures Stool Hemoccult Procedural Steps Taken: stool placed in appropriate test area, developer placed on stool and control areas and controls appropriately positive and negative Hemoccult result: negative Medical Decision Making Medical Decision Making MDM Narrative: 67-year-old female with PMHx of anxiety, depression, COPD, presents to the ED today with dizziness, chest pressure, and fatigue x1 month. vital signs notable for bradycardia, regular rhythm. Lungs CTA b/l. No nystagmus. Exam nonfocal. Cerebellum intact. Ambulating with steady gait. Hemoccult negative. Clinical concern for vertigo vs bradycardia vs orthostatic hypotension vs dehydration vs anemia vs vitamin deficiency vs hypothyroid. Unlikely CVA/ TIA, cervical dissection, cerebellar stroke or ICH. Unlikely meningitis / encephalitis as patient is afebrile, without leukocytosis. Low suspicion for ACS, arrhythmia, dissection, pneumonia, pneumothorax. Patient's EKG showing low voltage QRS however low concern for cardiac tamponade or pericardial effusion as chest x-ray is unremarkable, exam not consistent, and chronicity of patient's symptoms. Plan: labs, imaging, IVF, antiemetics Differential Diagnosis Differential Diagnoses: The differential diagnosis associated with the presentation includes Clinical concern for vertigo vs bradycardia vs orthostatic hypotension vs dehydration vs anemia vs vitamin deficiency vs hypothyroid. Unlikely CVA/ TIA, cervical dissection, cerebellar stroke or ICH. Unlikely meningitis / encephalitis as patient is afebrile, without leukocytosis. Low suspicion for ACS, arrhythmia, dissection, pneumonia, pneumothorax. Admission/Observation Consideration of admission/observation: Escalation of care including admission/observation considered In this 67 yo patient with multiple presyncopal episodes, admission was considered. Lab Data MDM Lab Attestation statement: I reviewed the patient's lab results. See above course narrative 05/10/23 10:39 05/10/23 10:39 Labs: Lab Results 05/10/23 05/10/23 05/10/23 Range/Units 10:39 11:00 11:28 WBC 5.0 (4.8-10.8) X10*3/uL RBC 3.77 L (4.20-5.50) X10*6/uL Hgb 11.6 L (12.0-16.0) g/dl Hct 35.7 L (37.0-47.0) % MCV 94.7 (80.0-98.0) fL MCH 30.8 (27.0-33.0) pg MCHC 32.5 (31.0-35.0) g/dl RDW 12.5 (11.0-16.0) % Plt Count 278 (160-400) X10*3/uL MPV 9.5 (9.4-12.3) fL Immature Gran % (Auto) 0.4 (0.0-0.4) % Neut % (Auto) 61.1 (45-73) % Lymph % (Auto) 29.7 (20-40) % Stafford % (Auto) 6.4 (2-11) % Eos % (Auto) 1.4 (0-4) % Baso % (Auto) 1.0 (0-2) % Lymph # (Auto) 1.5 (1.2-4.9) X10*3/uL Stafford # (Auto) 0.3 (0.1-1.2) X10*3/uL Eos # (Auto) 0.1 (0.0-0.4) X10*3/uL Baso # (Auto) 0.1 (0.0-0.2) X10*3/uL Abs Immat Gran (auto) 0.02 (0.00-0.03) X10*3/uL Absolute Neuts (auto) 3.1 (2.0-8.3) x10*3/uL Absolute Nucleated RBC 0.000 (0.0-0.012) X10*3/uL Nucleated RBC % (auto) 0.0 (0.0-0.2) /100WBC Sodium 141 (135-145) mmol/L Potassium 3.8 (3.3-5.1) mmol/L Chloride 108 (96-108) mmol/L Carbon Dioxide 27 (22-29) mmol/L Anion Gap 10 L (12-20) BUN 14 (9-16) mg/dL Creatinine 0.77 (0.5-1.4) mg/dL Estim Creat Clear Calc 54.5 Estimated GFR > 60 Random Glucose 90 (60-115) mg/dL Calcium 9.1 D (8.4-10.2) mg/dL Magnesium 2.2 (1.6-2.6) mg/dL Total Bilirubin 0.6 (0.0-1.0) mg/dL AST 19 (5-31) U/L ALT 12 (0-31) U/L Alkaline Phosphatase 61 (39-117) U/L Troponin I High Sens < 2.7 (<3.5-17.0) ng/L C-Reactive Protein < 0.04 (< or = 0.50) mg/dL B-Natriuretic Peptide 22 (<100) pg/mL Total Protein 6.2 L (6.5-8.0) g/dL Albumin 3.9 (3.5-5.0) g/dL Vitamin B12 (200-900) pg/mL Folate (> or = 4.0) ng/mL TSH (0.32-4.0) uIU/mL Urine Color Yellow Urine Appearance Clear Urine pH 8.0 (5.0-9.0) Ur Specific Buchanan <= 1.005 (1.005-1.025) Urine Protein Negative (Neg-Trace) mg/dL Urine Glucose (UA) Negative (Negative) mg/dL Urine Ketones Negative (Negative) mg/dL Urine Blood Negative (Negative) Urine Nitrite Negative (Negative) Ur Leukocyte Esterase Negative (Negative) Stool Occult Blood NEGATIVE (NEGATIVE) Salicylates (15-30) mg/dL Urine Opiates Screen (Not Detect) Urine Fentanyl Screen (Not Detect) Ur Barbiturates Screen (Not Detect) Ur Phencyclidine Scrn (Not Detect) Ur Amphetamines Screen (Not Detect) U Benzodiazepines Scrn (Not Detect) Urine Cocaine Screen (Not Detect) U Marijuana (THC) Screen (Not Detect) Ethyl Alcohol mg/dL COVID-19 (JAIMEE) Negative (Negative) COVID-19 Clin Com See Note Influenza Type A (TERRI) Negative (Negative) Influenza Type B (TERRI) Negative (Negative) Influenza A & B Note See Note 05/10/23 05/10/23 05/10/23 Range/Units 11:30 11:33 13:38 WBC (4.8-10.8) X10*3/uL RBC (4.20-5.50) X10*6/uL Hgb (12.0-16.0) g/dl Hct (37.0-47.0) % MCV (80.0-98.0) fL MCH (27.0-33.0) pg MCHC (31.0-35.0) g/dl RDW (11.0-16.0) % Plt Count (160-400) X10*3/uL MPV (9.4-12.3) fL Immature Gran % (Auto) (0.0-0.4) % Neut % (Auto) (45-73) % Lymph % (Auto) (20-40) % Stafford % (Auto) (2-11) % Eos % (Auto) (0-4) % Baso % (Auto) (0-2) % Lymph # (Auto) (1.2-4.9) X10*3/uL Stafford # (Auto) (0.1-1.2) X10*3/uL Eos # (Auto) (0.0-0.4) X10*3/uL Baso # (Auto) (0.0-0.2) X10*3/uL Abs Immat Gran (auto) (0.00-0.03) X10*3/uL Absolute Neuts (auto) (2.0-8.3) x10*3/uL Absolute Nucleated RBC (0.0-0.012) X10*3/uL Nucleated RBC % (auto) (0.0-0.2) /100WBC Sodium (135-145) mmol/L Potassium (3.3-5.1) mmol/L Chloride (96-108) mmol/L Carbon Dioxide (22-29) mmol/L Anion Gap (12-20) BUN (9-16) mg/dL Creatinine (0.5-1.4) mg/dL Estim Creat Clear Calc Estimated GFR Random Glucose (60-115) mg/dL Calcium (8.4-10.2) mg/dL Magnesium (1.6-2.6) mg/dL Total Bilirubin (0.0-1.0) mg/dL AST (5-31) U/L ALT (0-31) U/L Alkaline Phosphatase (39-117) U/L Troponin I High Sens < 2.7 (<3.5-17.0) ng/L C-Reactive Protein (< or = 0.50) mg/dL B-Natriuretic Peptide (<100) pg/mL Total Protein (6.5-8.0) g/dL Albumin (3.5-5.0) g/dL Vitamin B12 466 (200-900) pg/mL Folate 14.8 (> or = 4.0) ng/mL TSH 0.57 (0.32-4.0) uIU/mL Urine Color Urine Appearance Urine pH (5.0-9.0) Ur Specific Buchanan (1.005-1.025) Urine Protein (Neg-Trace) mg/dL Urine Glucose (UA) (Negative) mg/dL Urine Ketones (Negative) mg/dL Urine Blood (Negative) Urine Nitrite (Negative) Ur Leukocyte Esterase (Negative) Stool Occult Blood (NEGATIVE) Salicylates < 5.0 L (15-30) mg/dL Urine Opiates Screen Not Detected (Not Detect) Urine Fentanyl Screen Not Detected (Not Detect) Ur Barbiturates Screen Not Detected (Not Detect) Ur Phencyclidine Scrn Not Detected (Not Detect) Ur Amphetamines Screen Not Detected (Not Detect) U Benzodiazepines Scrn Not Detected (Not Detect) Urine Cocaine Screen Not Detected (Not Detect) U Marijuana (THC) Screen Not Detected (Not Detect) Ethyl Alcohol < 10 mg/dL COVID-19 (JAIMEE) (Negative) COVID-19 Clin Com Influenza Type A (TERRI) (Negative) Influenza Type B (TERRI) (Negative) Influenza A & B Note Independent Interpretation I performed an independent interpretation of an: EKG, Plain X-Ray and CT Scan Interpretation: EXG showing a sinus bradycardia at a rate of 58 bpm, low-voltage QRS, no ischemic changes. CXR without any infiltrate or consolidation, normal cardiac silhouette, agree with radiologist's interpretation CT head/ brain without acute bleed or mass effect, agree with radiologist's interpretation. Radiology Impression Discussion of test interpretation with radiology: I have reviewed the radiologist's reading. Radiologist Impression: XR chest 1V IMPRESSION: Unremarkable examination. CT head/brain wo IV con IMPRESSION: 1. Unremarkable noncontrast brain CT. No acute hemorrhage, mass effect or shift. No significant change since 11/13/2017. External Record Review External record reviewed: Inpatient record Prescription Management I considered prescription management with: Other ( antiemetics) Critical Care Time Critical Care Time Critical Care Time: No Discharge Plan Discharge Clinical Impression: Dizziness Patient Disposition: Home, Self-Care Instructions: Dizziness (ED) Additional Instructions: Your lab work today is reassuring. The CT scan of your head/brain did not show any acute bleed or masses. Your heart rate and blood pressure was noted to be low today however this seems to be your baseline. Zofran is an anti nausea medication and that has been sent to your pharmacy, take this as needed for dizziness and nausea. You can take Tylenol and Motrin as needed for headache. Make sure you drink enough fluids daily. Please follow-up with your primary care provider this week. Return to the emergency department if your symptoms persist or worsen. Prescriptions: New ondansetron 4 mg tablet,disintegrating 4 mg PO DAILY PRN (Reason: nausea and vomiting) 5 Days Qty: 14 0RF No Action Seroquel Suboxone Zetia atorvastatin sertraline prednisone 20 mg tablet 20 mg PO DAILY Qty: 10 0RF albuterol sulfate 90 mcg/actuation HFA aerosol inhaler 1 inh inhalation QID PRN (Reason: shortness of breath or wheezing) Qty: 8.5 0RF azithromycin [Zithromax Z-Shashank] 250 mg tablet See Rx Instructions .ROUTE .COMPLEX Qty: 6 0RF Rx Instructions: take 500 mg today (day 1), then 250 mg for 4 days (days 2-5) pantoprazole [Protonix] 40 mg tablet,delayed release (DR/EC) 40 mg PO DAILY Qty: 20 0RF prednisone 20 mg tablet 40 mg PO DAILY Qty: 10 0RF albuterol sulfate 90 mcg/actuation HFA aerosol inhaler 1 inh inhalation QID PRN (Reason: shortness of breath or wheezing) Qty: 8.5 0RF Referrals: Rakesh Hamlin MD [Primary Care Provider] - Interventions: ED Discharge Assessment Last Done: 05/10/23 15:20 Discharge Date/Time: 05/10/23 15:21
[2023-05-10] MEDS: 0.9 % Sodium Chloride 1,000 ML 999 ML IV ×3 (10:14→13:16)
--- NOTE | 2023-05-10 10:14 | PC.NURSE ---
pt a&ox3. respirations even and unlabored. pt reports having diarrhea and chest tightness for one month. pt reports not seeing any blood in her stool. pt denies nausea and vomiting. pt lung sounds clear bilaterally. pt abdomen soft non tender to touch with active bowel sounds in all 4 quadrants. pt normal sinus on tele.
[2023-05-10 10:46] LABS: MANUAL DIFF FLAG NO
[2023-05-10 10:49] LABS: Basophils Absolute Auto 0.1 X10*3/uL (0.0-0.2); Eosinophils Absolute Auto 0.1 X10*3/uL (0.0-0.4); Eosinophils Percent Auto 1.4 % (0-4); Hematocrit 35.7 % (37.0-47.0); Hemoglobin 11.6 g/dl (12.0-16.0); Imm Gran Abs Auto 0.02 X10*3/uL (0.00-0.03); Imm Gran Pct Auto 0.4 % (0.0-0.4); Lymphocytes Absolute Auto 1.5 X10*3/uL (1.2-4.9); Lymphocytes Percent Auto 29.7 % (20-40); Mean Corpuscular HGB Conc 32.5 g/dl (31.0-35.0); Mean Corpuscular Hemoglobin 30.8 pg (27.0-33.0); Mean Corpuscular Volume 94.7 fL (80.0-98.0); Mean Platelet Volume 9.5 fL (9.4-12.3); Monocytes Absolute Auto 0.3 X10*3/uL (0.1-1.2); Monocytes Percent Auto 6.4 % (2-11); Neutrophils Absolute Auto 3.1 x10*3/uL (2.0-8.3); Neutrophils Percent Auto 61.1 % (45-73); Platelet Count 278 X10*3/uL (160-400); Red Blood Count 3.77 X10*6/uL (4.20-5.50); Red Cell Distribution Width 12.5 % (11.0-16.0)
[2023-05-10 11:02] LABS: Alanine Aminotransferase 12 U/L (0-31); Albumin Level 3.9 g/dL (3.5-5.0); Alkaline Phosphatase 61 U/L (39-117); Anion Gap 10 (12-20); Aspartate Amino Transferase 19 U/L (5-31); Bilirubin Total 0.6 mg/dL (0.0-1.0); Blood Urea Nitrogen 14 mg/dL (9-16); C Reactive Protein < 0.04 mg/dL (< or = 0.50); Calcium 9.1 mg/dL (8.4-10.2); Carbon Dioxide 27 mmol/L (22-29); Chloride 108 mmol/L (96-108); Creatinine Clr Calc Pharmacy 54.5; Estimated Glomerular Filt Rate > 60; Glucose Random 90 mg/dL (60-115); Magnesium 2.2 mg/dL (1.6-2.6); Potassium 3.8 mmol/L (3.3-5.1); Sodium 141 mmol/L (135-145); Total Protein 6.2 g/dL (6.5-8.0)
[2023-05-10 11:06] LABS: B Type Natriuretic Peptide 22 pg/mL (<100)
[2023-05-10 11:08] LABS: Troponin-I High Sensitivity < 2.7 ng/L (<3.5-17.0)
[2023-05-10 11:12] LABS: Appearance Urine Clear; Color Urine Yellow; Glucose Urine UA Negative (Negative); Leukocyte Esterase Urine Negative (Negative); Nitrite Urine Negative (Negative); Specific Gravity - Urine <= 1.005 (1.005-1.025); Urine Blood Negative (Negative); Urine Ketones Negative (Negative); Urine Protein Negative (Neg-Trace)
[2023-05-10 11:14] LABS: COVID-19 Test Negative (Negative); IDNOW Serial# 08D9AD1C; IDNOW Serial# BCCEAD1C
[2023-05-10 11:15] LABS: Influenza A Negative (Negative); Influenza B2 Negative (Negative)
--- NOTE | 2023-05-10 11:17 | PC.NURSE ---
delay in second liter being hung due to pt bending arm. provider aware.
[2023-05-10 11:47] LABS: OBS Int Ctl Valid YES; OBS1 NEGATIVE (NEGATIVE)
[2023-05-10 11:54] LABS: Amphetamine Screen Urine Not Detected (Not Detect); Barbiturates, Urine Not Detected (Not Detect); Benzodiazepines Screen Urine Not Detected (Not Detect); Cannabinoid Screen Urine Not Detected (Not Detect); Cocaine Screen Urine Not Detected (Not Detect); Fentanyl, urine Not Detected (Not Detect); Opiate Screen Urine Not Detected (Not Detect); Phencyclidine Screen Urine Not Detected (Not Detect)
[2023-05-10 12:03] LABS: Ethanol < 10 mg/dL; Salicylate < 5.0 mg/dL (15-30)
[2023-05-10] MEDS: ondansetron HCL 4 MG/2 ML VIAL IVPUSH (12:20)
[2023-05-10 12:56] LABS: TSH reflex Free T4 0.57 uIU/mL (0.32-4.0)
[2023-05-10 13:09] LABS: Folate 14.8 ng/mL (> or = 4.0); Vitamin B12 466 pg/mL (200-900)
[2023-05-10 14:10] LABS: Troponin-I High Sensitivity < 2.7 ng/L (<3.5-17.0)
== END 2023-05-10 15:21 | disposition home or self-care (01) ==
PROVIDERS: Physician Assistant Medical; Emergency Provider Emergency Medicine; PCP Internal Medicine
DX: R42 Dizziness and giddiness (principal); Z20.822 Contact with and (suspected) exposure to COVID-19; R06.02 Shortness of breath; R00.1 Bradycardia, unspecified; E78.00 Pure hypercholesterolemia, unspecified; J44.9 Chronic obstructive pulmonary disease, unspecified; Z79.899 Other long term (current) drug therapy
CPT/HCPCS: 36415; 70450; 71045; 80053; 80179; 80307; 81003; 82272; 82607; 82746; 83735; 83880; 84443; 84484; 85025; 86140; 87502; 87635; 93005; 96361; 96374; 99284; 99285; J2405

== ENCOUNTER 2024-02-15 11:00 | Outpatient (RCR) | payer OTHER, SELFPAY | END 2024-04-17 10:42 | disposition home or self-care (01) | LOC: HO.PT 11:00 | PROVIDERS: PCP Internal Medicine; Visit Provider Nurse Practitioner Family | DX: G43.909 Migraine, unspecified, not intractable, without status migrainosus (principal) | CPT/HCPCS: 97110; 97140; 97161 ==

== ENCOUNTER 2024-06-02 20:21 | Emergency (ER) | payer OTHER, SELFPAY ==
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
[2024-06-02 20:29] VITALS: BP 125/72; PULSE 65; RESP 18; TEMP 36.9; O2SAT 98; BMI 19.5
[2024-06-02 20:53] LABS: MANUAL DIFF FLAG NO
[2024-06-02 21:11] LABS: Basophils Percent Auto 0.3 % (0-2); Eosinophils Percent Auto 0.4 % (0-4); Hematocrit 38.9 % (37.0-47.0); Hemoglobin 12.8 g/dl (12.0-16.0); Imm Gran Abs Auto 0.04 X10*3/uL (0.00-0.03); Imm Gran Pct Auto 0.4 % (0.0-0.4); Lymphocytes Absolute Auto 2.1 X10*3/uL (1.2-4.9); Lymphocytes Percent Auto 20.3 % (20-40); Mean Corpuscular HGB Conc 32.9 g/dl (31.0-35.0); Mean Corpuscular Hemoglobin 30.8 pg (27.0-33.0); Mean Corpuscular Volume 93.7 fL (80.0-98.0); Mean Platelet Volume 9.1 fL (9.4-12.3); Monocytes Absolute Auto 0.8 X10*3/uL (0.1-1.2); Monocytes Percent Auto 8.1 % (2-11); Neutrophils Absolute Auto 7.1 x10*3/uL (2.0-8.3); Neutrophils Percent Auto 70.5 % (45-73); Platelet Count 323 X10*3/uL (160-400); Red Blood Count 4.15 X10*6/uL (4.20-5.50); Red Cell Distribution Width 12.4 % (11.0-16.0); White Blood Count 10.1 X10*3/uL (4.8-10.8)
[2024-06-02 21:13] LABS: Alanine Aminotransferase 15 U/L (0-31); Albumin Level 4.5 g/dL (3.5-5.0); Alkaline Phosphatase 77 U/L (39-117); Anion Gap 11 (12-20); Aspartate Amino Transferase 21 U/L (5-31); Bilirubin Direct 0.1 mg/dL (0.0-0.5); Bilirubin Total 0.4 mg/dL (0.0-1.0); Blood Urea Nitrogen 15 mg/dL (9-16); C Reactive Protein 0.52 mg/dL (< or = 0.50); Calcium 9.6 mg/dL (8.4-10.2); Carbon Dioxide 28 mmol/L (22-29); Chloride 104 mmol/L (96-108); Creatinine Clr Calc Pharmacy 48.5; Estimated Glomerular Filt Rate > 60; Glucose Random 86 mg/dL (60-115); Magnesium 2.2 mg/dL (1.6-2.6); Potassium 3.5 mmol/L (3.3-5.1); Sodium 139 mmol/L (135-145); Total Protein 7.5 g/dL (6.5-8.0)
[2024-06-02] MEDS: Ampicillin Sodium/Sulbactam Na 3 GM in 0.9 % Sodium Chloride 100 ML IV (21:21)
[2024-06-02] MEDS: Lactated Ringers 1,000 ML 999 ML IV (21:22)
[2024-06-02 21:54] LABS: Erythrocyte Sedimentation Rate 18 MM/HR (0-20)
[2024-06-02] MEDS: Diphth,Pertus(ACell),Tet Adult 0.5 ML SYRINGE IM (22:45)
[2024-06-02 23:05] VITALS: BP 128/71; PULSE 65; RESP 16; TEMP 36.3; O2SAT 99
[2024-06-03] MEDS: Ketorolac Tromethamine 15 MG/ML VIAL IVPUSH (00:28)
[2024-06-03] MEDS: Ampicillin Sodium/Sulbactam Na 3 GM in 0.9 % Sodium Chloride 100 ML IV (00:29)
[2024-06-03 01:18] VITALS: BP 128/71; PULSE 65; RESP 16; TEMP 36.3; O2SAT 99
== END 2024-06-03 01:20 | disposition home or self-care (01) ==
PROVIDERS: Physician Assistant; Emergency Provider Emergency Medicine
DX: S50.812A Abrasion of left forearm, initial encounter (principal); W55.03XA Scratched by cat, initial encounter; L03.114 Cellulitis of left upper limb; Y93.9 Activity, unspecified; Y92.009 Unspecified place in unspecified non-institutional (private) residence as the place of occurrence of the external cause; Y99.9 Unspecified external cause status; Z23 Encounter for immunization
CPT/HCPCS: 36415; 80048; 80076; 83605; 83735; 85025; 85652; 86140; 87040; 90471; 90715; 96365; 96375; 99283; 99284; J0295; J1885; J7120

== ENCOUNTER 2025-01-27 10:40 | Outpatient (RCR) | payer OTHER, SELFPAY | END 2025-03-09 10:40 | disposition home or self-care (01) | LOC: HO.PTCHIC 10:40 | PROVIDERS: PCP Internal Medicine; Visit Provider Nurse Practitioner | DX: M54.42 Lumbago with sciatica, left side (principal); M54.41 Lumbago with sciatica, right side | CPT/HCPCS: 97110; 97161 ==

== ENCOUNTER → 2025-06-17 12:54 | Outpatient (RCR) | payer OTHER, SELFPAY ==
[2024-05-22 10:01] VITALS: BP 105/71
== END | disposition home or self-care (01) ==
LOC: HO.PT 05-22 09:55
PROVIDERS: PCP Internal Medicine; Visit Provider Internal Medicine
DX: S03.00XD Dislocation of jaw, unspecified side, subsequent encounter (principal)
CPT/HCPCS: 97035; 97110; 97161